=== PATIENT | male | born 1960 | race Hispanic/Latino ===

== ENCOUNTER 2024-01-22 19:19 | Emergency (ER) | payer BC, OTHER ==
[~2024-01-22] VITALS: Ht 170.2 cm; Wt 68.2 kg
[~2024-01-22 19:19] MED LIST: ACETAMINOPHEN500 MG PO; AMOX TR-K CLV1 EAC1 PO; CIPROFLOXACIN500 MG PO; CULTURELLE1 EAC1 PO; CYCLOBENZAPRINE10 MG PO; DOCUSATE SODIU100 MG PO; FLUCONAZOLE200 MG PO; HYDROMORPHONE HC2 MG PO; METOPROLOL SUC100 MG PO; METRONIDAZOLE250 MG PO; ONDANSETRON HCL4 MG PO; OXYCODONE HCL5 MG PO; PANTOPRAZOLE SO40 MG PO; ROSUVASTATIN CA10 MG PO; SUCRALFATE1 GM PO; TADALAFIL20 M1 PO; TAMSULOSIN HCL0.4 MG PO
--- OUTSIDE RECORDS SUMMARY | 2024-01-22 19:23 | XMS ---
PreManage Notification: EKATERINA BLANTON Security Customer Engineer Events No recent Security Events currently on file [facility] There are no care providers on record at this time. Berta has no Care Guidelines for this patient. [place] VISIT COUNT (12 MO.) 2 CHARITO Walters TOTAL 2 NOTE: Visits indicate total known visits. ED/UCC VISIT TRACKING (12 MO.) 01/22/2024 19:19 CHARITO Perez [place] TYPE: Emergency COMPLAINT: - WOUND CHECK 12/20/2023 02:55 CHARITO Perez [place] TYPE: Emergency COMPLAINT: - ABD PAIN INPATIENT VISIT TRACKING (12 MO.) 12/20/2023 06:18 CHARITO Perez [place] TYPE: Medical Surgical COMPLAINT: - ABDOMINAL ABSCESS DIAGNOSES: - Acquired absence of other specified parts of digestive tract - Acquired absence of other specified parts of digestive tract - Anemia, unspecified - Anemia, unspecified - Bacteroides fragilis [B. fragilis] as the cause of diseases classified elsewhere - Bacteroides fragilis [B. fragilis] as the cause of diseases classified elsewhere - Cardiomyopathy, unspecified - Cardiomyopathy, unspecified - Diaphragmatic hernia without obstruction or gangrene - Diaphragmatic hernia without obstruction or gangrene - Esophageal varices without bleeding - Esophageal varices without bleeding - Facial weakness - Facial weakness - Fistula of intestine - Fistula of intestine - Gastritis, unspecified, without bleeding - Gastritis, unspecified, without bleeding - Gastro-esophageal reflux disease without esophagitis - Gastro-esophageal reflux disease without esophagitis - Gastrointestinal hemorrhage, unspecified - Hypokalemia - Hypokalemia - Hypomagnesemia - Hypomagnesemia - Infection following a procedure, organ and space surgical site, initial encounter - Infection following a procedure, organ and space surgical site, initial encounter - Other postprocedural complications and disorders of digestive system - Other postprocedural complications and disorders of digestive system - Other specified abnormal findings of blood chemistry - Other specified abnormal findings of blood chemistry - Other specified bacterial agents as the cause of diseases classified elsewhere - Other specified bacterial agents as the cause of diseases classified elsewhere - Other supraventricular tachycardia - Other supraventricular tachycardia - Perforation of intestine (nontraumatic) - Perforation of intestine (nontraumatic) - Peritoneal abscess - Peritoneal abscess - Peritoneal adhesions (postprocedural) (postinfection) - Peritoneal adhesions (postprocedural) (postinfection) - Sepsis, unspecified organism - Sepsis, unspecified organism - Severe sepsis with septic shock - Severe sepsis with septic shock - Surgical operation with anastomosis, bypass or graft as the cause of abnormal reaction of the patient, or of later complication, without mention of misadventure at the time of the procedure - Surgical operation with anastomosis, bypass or graft as the cause of abnormal reaction of the patient, or of later complication, without mention of misadventure at the time of the procedure - Unspecified abdominal pain - Unspecified right bundle-branch block - Unspecified right bundle-branch block [email or web address]
[2024-01-22 20:04] LABS: BASOPHILS 0.8 % (0-2); EOSINOPHILS 5.9 % (0-6); HEMATOCRIT 30.5 % (35.0-50.0); HEMOGLOBIN 10.3 g/dL (12.0-18.0); LYMPHOCYTES 25.1 % (24-44); MCH 29.3 (27-36); MCHC 33.8 g/dl (30-36); MCV 86.9 fl (81-99); MONOCYTES 7.4 % (0-12); NEUTROPHILS 60.8 % (39-80); PLATELET COUNT 264 K/uL (140-440); RBC 3.51 M/ul (4.3-5.7); RDW 13.9 (10.5-15.0)
[2024-01-22 20:17] LABS: ALBUMIN 2.8 g/dL (3.4-5.0); ALBUMIN/GLOBULIN RATIO 0.7 (1.1-2.4); ANION GAP 11.6 (7-21); BILIRUBIN, TOTAL 0.3 ng/dL (0.2-1.0); BUN/CREATININE RATIO 22.36 (6.0-28.6); CALCIUM 8.3 mg/dL (8.5-10.1); CREATININE, SERUM 0.76 mg/dL (0.70-1.30); POTASSIUM 3.6 mmol/L (3.5-5.1); PROTEIN, TOTAL 6.8 g/dL (6.4-8.2)
[2024-01-22 21:56] VITALS: BP 135/88
== END 2024-01-22 21:56 | disposition home or self-care (01) ==
LOC: ED 19:19
PROVIDERS: Family Medicine
DX: K63.2 Fistula of intestine (principal); Z79.899 Other long term (current) drug therapy
CPT/HCPCS: 36415; 74177; 80053; 85025

== ENCOUNTER 2024-06-07 16:50 | Emergency (ER) | payer BC, OTHER ==
[~2024-06-07] VITALS: Ht 170.2 cm; Wt 74.9 kg
[2024-06-07] MEDS ORDERED: SODIUM CHLORIDE 0.9% 1,000 ML IV ONE (18:00)
[2024-06-07 18:17] LABS: BASOPHILS 0.6 % (0-2); HEMATOCRIT 37.3 % (35.0-50.0); HEMOGLOBIN 12.6 g/dL (12.0-18.0); LYMPHOCYTES 18.7 % (24-44); MCH 28.1 (27-36); MCHC 33.9 g/dl (30-36); MONOCYTES 7.4 % (0-12); NEUTROPHILS 69.3 % (39-80); PLATELET COUNT 250 K/uL (140-440); RBC 4.49 M/ul (4.3-5.7); RDW 17.1 (10.5-15.0)
[2024-06-07 18:29] LABS: ALBUMIN 3.2 g/dL (3.4-5.0); ALBUMIN/GLOBULIN RATIO 0.82 (1.1-2.4); BILIRUBIN, TOTAL 0.2 ng/dL (0.2-1.0); BUN/CREATININE RATIO 12.6 (6.0-28.6); CALCIUM 8.4 mg/dL (8.5-10.1); CREATININE, SERUM 1.19 mg/dL (0.70-1.30); PROTEIN, TOTAL 7.1 g/dL (6.4-8.2)
[2024-06-07 19:31] VITALS: BP 136/87
== END 2024-06-07 19:31 | disposition home or self-care (01) ==
LOC: ED 16:50
PROVIDERS: Emergency Medicine
DX: Z03.89 Encounter for observation for other suspected diseases and conditions ruled out (principal); L98.8 Other specified disorders of the skin and subcutaneous tissue; Z98.890 Other specified postprocedural states
CPT/HCPCS: 36415; 74177; 80053; 83690; 85025; 99284-25; J7030; Q9967

== ENCOUNTER 2024-07-05 13:15 | Inpatient (IN) | payer BC, OTHER ==
[~2024-07-05] VITALS: Ht 157.5 cm; Wt 75.0 kg
[2024-07-08] MEDS ORDERED: FLUTICASONE PRO16 GM NAS (07:30)
[2024-07-08 07:35] VITALS: BP 148/96
[2024-07-09] VITALS (7 sets, daily range): BP systolic 112–145; BP diastolic 73–83
[2024-07-09] MEDS ORDERED: LACTATED RINGER'S 1,000 ML IV SCH ×2 (05:00→13:45)
[2024-07-09] MEDS ORDERED: TYLENOL325 MG PO (06:13)
[2024-07-09] MEDS ORDERED: ADVIL LIQUI-GE200 MG PO (06:13)
[2024-07-09] MEDS ORDERED: HEParin SOD (PORCINE) 5,000 UNIT/0.5 ML SYR SUB-Q SCH (07:00)
[2024-07-09] MEDS ORDERED: metroNIDAZOLE/SODIUM CHLORIDE 500 MG/100 ML PIGGYBACK IV SCH ×2 (07:00→14:00)
[2024-07-09] MEDS ORDERED: LIDOCAINE HCL 1% 5 ML SDV INJ ONE (07:00)
[2024-07-09] MEDS ORDERED: IBLOOD GLUCOSE TEST STRIP 1 EA TEST VI PRN ×2 (07:00→13:30)
[2024-07-09] MEDS ORDERED: CEFAZOLIN SODIUM 2 GM/20 ML SYR IV SCH ×2 (07:00→14:00)
[2024-07-09] MEDS ORDERED: ROCURONIUM BROMIDE 50 MG/5 ML SYR ONE ×2 (09:14→10:26)
[2024-07-09] MEDS ORDERED: ACETAMINOPHEN 1,000 MG/100 ML VIAL ONE (09:14)
[2024-07-09] MEDS ORDERED: dexmedeTOMIDine HCl 200 MCG/2 ML VIAL ONE (09:14)
[2024-07-09] MEDS ORDERED: LIDOCAINE HCL 2% 20 MG/ML VIAL INJ ONE (09:14)
[2024-07-09] MEDS ORDERED: DEXAMETHASONE SOD PHOS 4 MG/ML VIAL ONE ×3 (09:14→12:30)
[2024-07-09] MEDS ORDERED: fentaNYL citrate 100 MCG/2 ML VIAL ONE (09:14)
[2024-07-09] MEDS ORDERED: propofoL 200 MG/20 ML VIAL ONE (09:14)
[2024-07-09] MEDS ORDERED: ondansetron HCL 4 MG/2 ML VIAL ONE (09:14)
[2024-07-09] MEDS ORDERED: LIDOCAINE HCL 2% 5 ML SDV ONE (09:14)
[2024-07-09] MEDS ORDERED: KETAMINE in NS 50 MG/5 ML SYR ONE (09:15)
[2024-07-09] MEDS ORDERED: ePHEDrine sulfate 50 MG/ML AMP ONE (09:42)
[2024-07-09] MEDS ORDERED: LACTATED RINGER'S 1,000 ML IV ONE ×2 (10:47→12:25)
[2024-07-09] MEDS ORDERED: MAGNESIUM SULFATE 1 GM/2 ML VIAL ONE (11:43)
--- NOTE | 2024-07-09 11:45 | NUR ---
Spoke with pts family, he is in surgery. , daughter, and LAINEY present. Family deny needs. Pt has been walking well and does not need any DME. Family drive him. Pt now has OHP and they are ok financially. They do not have food stamps or use a food bank. Pt will go home with family when he is discharge. I will fu with pt later this afternoon or in the am following surgery. Family deny needs.
[2024-07-09] MEDS ORDERED: SODIUM CHLORIDE 0.9% 20 ML IV ONE ×2 (12:30)
[2024-07-09] MEDS ORDERED: Ropivacaine HCl 0.5% 30 ML VIAL ONE ×2 (12:30)
[2024-07-09] MEDS ORDERED: SEVOFLURANE 250 ML BTL INH ONE (13:19)
[2024-07-09] MEDS ORDERED: NALOXONE HCL 0.4 MG SYR IV PRN (13:30)
[2024-07-09] MEDS ORDERED: ondansetron HCL 4 MG/2 ML VIAL IV PRN ×2 (13:30→13:45)
[2024-07-09] MEDS ORDERED: fentaNYL citrate 50 MCG/ML SDV IV PRN (13:30)
[2024-07-09] MEDS ORDERED: PROCHLORPERAZINE EDISYLATE 10 MG/2 ML VIAL IV PRN (13:30)
[2024-07-09] MEDS ORDERED: HYDROmorphone HCL 1 MG/ML SYR IV PRN ×2 (13:30→13:45)
[2024-07-09] MEDS ORDERED: droPERidol 5 MG/2 ML VIAL IV PRN (13:30)
--- NOTE | 2024-07-09 13:35 | NUR ---
07/09/24 6985 Kendra Evans PATIENT BEGINS TO SWALLOW. ORAL AIRWAY IS REMOVED AFTER FOLLOWING MY INSTRUCTIONS TO OPEN HIS MOUTH. PATIENT IS REASSURED. HE RETURNS TO RESTING QUIETLY, WITH HIS EYES CLOSED, WHEN UNSTIMULATED.
[2024-07-09] MEDS ORDERED: FAMOTIDINE 20 MG/ 2 ML VIAL IV SCH (13:39)
[2024-07-09] MEDS ORDERED: TAMSULOSIN HCL 0.4 MG CAP PO SCH (13:44)
[2024-07-09] MEDS ORDERED: LIDOCAINE 2% VISCOUS 6 ML SYR TOP ONE (13:45)
[2024-07-09] MEDS ORDERED: ACETAMINOPHEN 1,000 MG/100 ML VIAL IV PRN (13:45)
[2024-07-09] MEDS ORDERED: KETOROLAC TROMETHAMINE 30 MG/ML VIAL IV PRN (13:45)
[2024-07-09] MEDS ORDERED: IBUPROFEN 600 MG TAB PO PRN (13:45)
[2024-07-09] MEDS ORDERED: ACETAMINOPHEN 500 MG TAB PO PRN (13:45)
[2024-07-09] MEDS ORDERED: HEParin SOD (PORCINE) 5,000 UNIT/ML SDV SUB-Q SCH (14:00)
--- NOTE | 2024-07-09 14:24 | NUR ---
PT ARRIVES MED-SURG ROOM 113 VIA GURNEY, ESCORTED BY SOLO REGALADO. PT IS DROWSY, ROUSES EASILY TO VERBAL STIMULI. PT IS ALERT AND ORIENTED. VSS. CONTINUOUS PULSE OXIMETER IN PLACE, SCDS TO BLE FROM ANKLE TO KNEE. IV IN LEFT WRIST, PATENT, WNL. STOCKTON CATHETER DRAINS CLEAR, LIGHT YELLOW URINE TO GRAVITY. MID-LINE ABDOMINAL INCISION COVERED WITH DRESSING, SMALL AMOUNT OF SWALLOWING NOTED AT THE DISTAL PORTION. RLQ DRESSING IN PLACE OVER PREVIOUS DRAIN SITE. MODERATE AMOUNT OF SHADOWING NOTED. ABDOMEN IS MODERATELY DISTENDED, TENDER TO TOUCH. BOWEL TONES HYPOACTIVE X4 QUADRANTS. LUNGS CLEAR, HRR. VP PATIENT TO BUE AND BLE LESS THAN 3 SEC. PT ORIENTED TO ROOM AND CALL LIGHT. CALL LIGHT IN REACH. VISITORS X3 IN ROOM.
--- NOTE | 2024-07-09 15:27 | NUR ---
NO NEW DRAINAGE NOTED ON ABDOMINAL INCISIONS. ABDOMIN REMAINS MODERATELY DISTENDED. PT ASKS TO PASS BM, PT AMBULATES WITH SBA TO TOILET. PT ATTEMPTS TO PASS BM, NO RESULTS. PT BACK TO BED, TOLERATES ACTIVITY FAIR. REPORTS 7/10 INCISIONAL PAIN, DILAUDID, RECEIVED, SEE EMAR. FLAGYL INFUSION RUNNING, IV SITE WNL. VSS. CALL LIGHT IN REACH.
--- NOTE | 2024-07-09 17:27 | NUR ---
VSS. PT NOW REPORTS PAIN IN ABDOMEN 2/10, TOLERABLE. PT RESTS IN BED. TOLERATES SIPS OF WATER. STOCKTON CATHETER DRAINS CLEAR YELLOW URINE TO GRAVITY. PT AGREEABLE TO JELLO. EDUCATION ON IS PROVIDED, IS IN REACH, ENCOURAGED. ABDOMEN REMAINS MODERATELY DISTENDED AND FIRM, TENDER TO TOUCH. SMALL INCREASE IN SHADOWING TO DISTAL PORTION OF MID-LINE INCISION. RLE DRESSING NOW SATURATED. PT EATS JELLO, CALL LIGHT IN REACH, NO REQUESTS AT THIS TIME.
--- NOTE | 2024-07-09 19:30 | NUR ---
REPORT RECIEVED FROM DAY SHIFT RN. PATIENT RESTING IN BED. DENIES NEEDS AT THIS TIME. CALL LIGHT IN REACH.
--- NOTE | 2024-07-09 20:14 | NUR ---
in room. No cares were requested.
--- NOTE | 2024-07-09 20:26 | NUR ---
PATIENT RESTING IN BED. VS AND I&Os OBTAINED AND RECORDED. STOCKTON CATH CARE PROVIDED PER PROTOCOL. PATIENT REPORTS 2/10 ABD PAIN AT THIS TIME AND STATES HE WILL CALL IF HE NEEDS PAIN MEDICATION. ABD DRESSINGS C/D/I WITH DRAINAGE NOTED. PATIENT HAS NO FURTHER NEEDS. PATIENT EDUCATED TO ROOM AND CALL LIGHT. BED ALARM ON FOR SAFETY. CALL LIGHT IN REACH.
--- NOTE | 2024-07-09 22:10 | NUR ---
SCHEDULED MEDICATION ADMINISTERED. PATIENT DENIES THE NEED FOR PAIN MEDCIATION AT THIS TIME. NO FURTHER NEEDS. CALL LIGHT IN REACH.
[2024-07-10] VITALS (10 sets, daily range): BP systolic 112–161; BP diastolic 71–81
--- NOTE | 2024-07-10 00:51 | NUR ---
PATIENT RESTING IN BED ON BACK WITH EYES CLOSED. RESPIRATIONS EVEN AND UNLABORED. CALL LIGHT IN REACH.
--- NOTE | 2024-07-10 01:00 | NUR ---
CALL LIGHT ANSWERED. PATIENT REQUESTING PAIN MEDICATION. PRN PAIN MEDICATION ADMINISTERED. VS AND I&Os OBTAINED AND RECORDED. NO FURTHER NEEDS AT THIS TIME. CALL LIGHT IN REACH.
--- NOTE | 2024-07-10 03:00 | NUR ---
PATIENT RESTING IN BED WITH EYES CLOSED. RESPIRATIONS EVEN AND UNLABORED. CALL LIGHT IN REACH.
--- NOTE | 2024-07-10 04:36 | NUR ---
PRN PAIN MEDICATION ADMINSITERED PER PATIENT REQUEST. PATIENT REPORTS 03/30 ABD PAIN. ABD DRESSINGS C/D/I WITH DRAINAGE NOTED ON DRESSINGS. PATIENT DENIES FURTHER NEEDS. SCDs IN PLACE. CALL LIGHT IN REACH.
--- NOTE | 2024-07-10 05:24 | NUR ---
PATIENT REPORTS 8/10 ABD PAIN. PATIENT REQUESTING DILAUDID. PRN MEDICATION ADMINSITERED. PATIENT DENIES FURTHER NEEDS. CALL LIGHT IN REACH.
[2024-07-10 05:44] LABS: BASOPHILS 0.6 % (0-2); HEMATOCRIT 34.6 % (35.0-50.0); HEMOGLOBIN 11.6 g/dL (12.0-18.0); LYMPHOCYTES 8.9 % (24-44); MCH 27.7 (27-36); MCHC 33.4 g/dl (30-36); MCV 82.9 fl (81-99); MONOCYTES 6.8 % (0-12); NEUTROPHILS 83.7 % (39-80); PLATELET COUNT 229 K/uL (140-440); RBC 4.17 M/ul (4.3-5.7); RDW 15.6 (10.5-15.0)
[2024-07-10 06:05] LABS: ALBUMIN 2.7 g/dL (3.4-5.0); ALBUMIN/GLOBULIN RATIO 0.84 (1.1-2.4); ANION GAP 11.9 (7-21); BILIRUBIN, TOTAL 0.5 ng/dL (0.2-1.0); BUN/CREATININE RATIO 14.89 (6.0-28.6); CALCIUM 8.3 mg/dL (8.5-10.1); CREATININE, SERUM 0.94 mg/dL (0.70-1.30); POTASSIUM 3.9 mmol/L (3.5-5.1); PROTEIN, TOTAL 5.9 g/dL (6.4-8.2)
--- NOTE | 2024-07-10 06:05 | NUR ---
SCHEDULED MEDICATION ADMINSITERED. PATIENT HAS NO FURTHER NEEDS. CALL LIGHT IN REACH.
--- NOTE | 2024-07-10 07:07 | NUR ---
REPORT RECEIVED FROM SOLO SOTOMAYOR. PT OPENS EYES AND RESPONDS WHEN GREETED. NO NEEDS AT THIS TIME, CALL LIGHT AND PERSONAL BELONGINGS IN REACH.
--- NOTE | 2024-07-10 08:06 | NUR ---
PATIENT RESTING IN BED AT THIS TIME. FINANCE ATTORNEY WENT INTO ROOM FOR HOURLY ROUNDS, RN IN ROOM AT THIS TIME. CALL LIGHT WITHIN REACH, NO FURTHER NEEDS AT THIS TIME.
--- NOTE | 2024-07-10 09:13 | NUR ---
INITIAL ASSESSMENT COMPLETE. PT IV FLUSHES WNL. LUNG SOUNDS CLEAR THROUGHOUT, ON ROOM AIR WITH CPOX AT BEDSIDE, HEART TONES HEARD WNL. BOWEL TONES ACTIVE THROUGHOUT, PT HAS INCISIONAL PAIN WITH PALPATION, OTHERWISE STATES HIS PAIN IS A 2/10 AND HAS NO REQUESTS FOR INTERVENTION AT THIS TIME. MIDLINE DRESSING IS IN PLACE WITH DARK RED SHADOWING NOTED TO BOTTOM 1/3 OF DRESSING, BOTTOM EDGES OF DRESSING ARE CURLING UP A SMALL AMOUNT. DRESSING IN RLQ IS INTACT WITH PINK SHADOWING NOTED THROUGHOUT DRESSING. PT PULSES 2+ IN ALL EXTREMETIES, NO EDEMA, NUMBNESS, OR TINGLING. STOCKTON CARE PROVIDED BY SOLO CASTILLO. STOCKTON TO R THIGH FLOWING FREELY AND HANGING ON R SIDE OF BED, URINE CLEAR AND YELLOW. PT EXPRESSES DISCOMFORT WITH STOCKTON, STATES HE WOULD LIKE IT REMOVED. PTs IS PRESENT ON COUCH THROUGHOUT. NO OTHER NEEDS AT THIS TIME, CALL LIGHT AND PERSONAL BELONGINGS IN REACH.
--- NOTE | 2024-07-10 09:48 | NUR ---
UR CLINICAL REVIEW: [facility] INPT CRITER FOR GENERAL SURGICAL GRG KASSIE GIRALDO PPO INPT 07/09/24 @ 1343 ORDER MATCHES REG RECORDS SENT FOR AUTH REVIEW DISCHARGE TO HOME WHEN STABLE 07/12/24
--- NOTE | 2024-07-10 10:07 | NUR ---
GERBER BURNS PRESENT IN ROOM CHANGING PTs LINEN AND ASSISTING WITH CARES.
--- NOTE | 2024-07-10 10:30 | NUR ---
Spoke with John. He also denies needs. He states he now has OHP, he has applied for food stamps that will start in July, he spoke with JOSE DE JESUS and they completed an evaluation. They helped him with a utility bill. He states they do not run out of food. Money is short as he has not been able to return to work. His daughter moved in with her and his to assist and drive him. Pt plans on dc to home when he is cleared medically.
--- NOTE | 2024-07-10 10:59 | OR ---
[facility] [address], [place] [address] Signed DATE OF OPERATION: 07/09/2024 SURGEON: Hossein Carrasco MD PREOPERATIVE DIAGNOSES: 1. 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 2. History of severe sepsis with intra-abdominal abscess related to defect in small bowel with laparotomy, repair of enterotomy, placement of omental patch December 20, 2023.( Hossein Carrasco MD [facility]) 3. History of robotic cholecystectomy and appendectomy with repair of enterotomy x3 (Dr. Tamia Chen, [facility]) November 2023 4. Subsequent segmental bowel resection (Dr. Gale, ([place], [place] November 2023). POSTOPERATIVE DIAGNOSIS: Persistent enterocutaneous fistula segment of small bowel. PROCEDURES: 1. Laparotomy with extensive lysis of adhesions, prolonged, complicated and difficult. 2. Excision of segment of small bowel with enterocutaneous fistula including end-to-end enteroenterostomy. 3. Excision of fistulous tract (prolonged, complicated, difficult). ANESTHESIA: General endotracheal; Akira Rashid BOOKS BINDER and postoperative bilateral TAP block. INDICATION: This 63-year-old man is a patient of Dr. Symone Jeffers, [place], [place]. The patient lives in [place] and works for [employer] in [place]. In mid November, he underwent robotic cholecystectomy and appendectomy by Dr. Tamia Chen in [place], [place] with three enterotomies requiring repair. He had a prolonged ileus postoperatively ultimately operated on by Dr. Gale in [place], [place] through laparotomy requiring segmental small bowel resection with stapled anastomosis. He was subsequently discharged from the hospital, presented to [facility] emergency room with septic shock markedly hypotensive and tachycardic and found on CT scan to have intra-abdominal abscess and free air. Emergency operation included drainage of abscess and identification of a defect in the small bowel, not far from previous bowel resection. As the abdomen was essentially "frozen" mobilization of bowel loops could not be undertaken. Therefore, primary repair was undertaken as well as an omental patch and placement of a drain. As might be predicted, he did develop a fistula and enteric Electronically Signed By: HOSSEIN CARRASCO MD 07/10/24 1059 PATIENT NAME: EKATERINA BLANTON OPERATIVE REPORT DATE OF : 62 REPORT #: [id number] PHYSICIAN: HOSSEIN CARRASCO MD PCP: SYMONE JEFFERS MD REPORT IS CONFIDENTIAL AND NOT TO BE RELEASED WITHOUT AUTHORIZATION [facility] [address], [place] [address] Signed drainage through that site. Care was maintained to keep the fistula "off the midline" draining through right lateral area through the drain itself. The wound VAC device applied at time of operation did collect a fair amount of bilious fluid initially ultimately that dried up. The patient was ultimately discharged home with a drain in place. He has had subsequent outpatient monitoring and diminished drain output through the Quentin tube. Imaging studies including small bowel follow-through showing no sign of actual fistula. However, the fistulous output, though quite minimal, has always had a tinge of bile within it. The patient is more than six months out since initial operation and although highly functional and having recovered fully from his sepsis and situational malnutrition. 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 On June 10, 2024, he underwent a fistulogram via the drain on the right side which did confirm persistent enterocutaneous fistula. He is now offered operation for definitive resection of the fistulous tract and the fistula segment of bowel. He and his and daughter understand the risk of bleeding, infection, inability to complete the operation and formidable and hostile abdomen is encountered as well as other complications that are unforeseen. Understanding this they wished to proceed. FINDINGS: The abdomen was far more favorable than at his initial laparotomy on December 19 but he did have dense interloop adhesions throughout the abdominal cavity. A fistulous tract extending from the right mid abdomen to the central portion of the abdomen was identified and carefully dissected free extending to a segment of small bowel where a very small fistulous opening was noted. A fibrinopurulent tract was noted corresponding to the drain itself. Resection of the segment of small bowel with the fistula was accomplished and an end to end anastomosis accomplished. Extensive lysis of adhesions was required throughout the course of operation. There were no enterotomies made during the course of dissection. The previous stapled anastomosis performed in [place] appeared to be intact, though the bowel segments were somewhat dilated in this area, but without sign of actual obstruction. Definitive resection of the fistulous tract and the fistulous opening and corresponding segment of small bowel has been accomplished successfully. Of note, there is only scant omentum that Electronically Signed By: HOSSEIN CARRASCO MD 07/10/24 1059 PATIENT NAME: EKATERINA BLANTON OPERATIVE REPORT DATE OF : 62 REPORT #: [id number] PHYSICIAN: HOSSEIN CARRASCO MD PCP: SYMONE JEFFERS MD REPORT IS CONFIDENTIAL AND NOT TO BE RELEASED WITHOUT AUTHORIZATION [address] [place] [address] Signed remains and was not able to cover the abdominal contents from the incision itself. DESCRIPTION OF PROCEDURE: The patient was brought to the operating room and given a general endotracheal anesthetic. Preoperative antibiotics had been administered. A full bowel prep was given preoperatively. Sequential compression device stockings used and heparin subcutaneously administered. The right-sided Quentin drain was draining to a bulb receptacle which had a light green fibrinopurulent appearance. There is no actual egress from the midline incision at this point. The abdomen was clipped and prepared with a chlorhexidine solution. A Whaley catheter was placed as well. Sequential compression device stockings were used also. The previou midline incision extended to below the umbilicus. The central wound scar was quite dense, no doubt related to prolonge wound vac management of enteric drainage previously. An area inferior to the incision in the low mid pelvis was incised and dissection carried through fresh subcutaneous tissue and with meticulous care, ultimately entering the peritoneal cavity. There were interloop adhesions but with meticulous care the plane of the peritoneal cavity could be more fully developed. The incision was extended cephalad as bowel loops that were densely adherent to the undersurface of the abdominal wall were with sharp and blunt dissection freeing the midline fascia cephalad. Extreme care was taken in avoidance of enterotomy. There were NO enterotomies through the course of operation. In the region of the midline at the umbilicus, extremely dense fibrous tissue was noted corresponding to his transabdominal fistulous drainage requiring wound VAC previously was noted. INternally the fistulous tract had a muco purulent exudate which was gram stained and cultured. Protracted and meticulous dissection was continued ultimately freeing bowel loops and identifying the offending segment of bowel and its fistulous connection to the right abominal drain site. Body position of surgeon was changed to the left side where furhter dissection was undertaken freeing the bowel loops and inflammatory process from the abdominal wall using sharp dissection with a 15 blade. Ultimately, the drain was encountered that penetrated into the fistulous tract. The drain was transected at its origin from the abdominal wall and later removed. Interloop adhesions of normal appearing bowel loops were freed up using sharp dissection to the offending segment of small bowel concordant to the bowel segment likely having the fistulous defect. The fibrous tract of the quentin drain wa dissected to a single loop of bowel. I t was densely adherent and within this area one could see the fistulous opening. Electronically Signed By: HOSSEIN CARRASCO MD 07/10/24 1059 PATIENT NAME: EKATERINA BLANTON OPERATIVE REPORT DATE OF : 62 REPORT #: [id number] PHYSICIAN: HOSSEIN CARRASCO MD PCP: SYMONE JEFFERS MD REPORT IS CONFIDENTIAL AND NOT TO BE RELEASED WITHOUT AUTHORIZATION [address] [address] Signed Segmental bowel resection was deemed most appropriate for definitive treatment of the problem. The bowel loop was isolated with laparotomy packs and the mesentery to it was incised and secured with hemostats and vascular pedicles secured with 0 silk ties. Two Mack clamps were applied to the small bowel segment and the segment of small bowel and dense fistulous tract sent for permanent pathology. The Gram stain of the fistulous tract, which was earlier obtained during the course of the operation whoed white cells, but no significant bacteria count. The anastomosis was formed in a end-to-end configuration using a two layer technique of interrupted 3-0 silk in the serosal layer and interrupted 3-0 Vicryl in the mucosal layer. The minimal mesenteric defect was secured with interrupted 3-0 silk. Two large clips were applied to the anastomotic margins for future reference should the need arise. The anastomosis appeared widely patent and when milking the segments proximally and distally, there was no sign of leakage. Good viability of both proximal and distal segments was noted. The segments were freed more fully from surrounding bowel loops. The area of previous anastomosis performed elsewhere, which appeared to be a staple anastomosis was widely patent; though somewhat bulbous in its configuration, it was certainly not obstructed in any way. The intra-abdominal cavity was copiously irrigated with saline solution. Tisseel fibrin glue was applied to the anastomosis and with an aerosolizer to provide support to the anastomosis. The drain emanating from the right abdominal wall was fully removed. The defect of the fascial wall internally was reapproximated with #1 PDS suture, though the defect was small enough it would be unlikely to cause hernia or other problem. Only minimal residual omentum remained to lay over the intra abdominal contents. The abdomen was copiously irrigated and the midline fascia was reapproximated with running bidirectional #1 PDS suture. The fistulous tract from the right side of the abdomen was excised with electrocautery, cauterized and later packed with plain gauze. Irrigation was undertaken of the subcutaneous space. The skin was closed with interrupted clips rather than the usual closure with Vicryl so as to allow egress of fluid if necessary. An Acticoat dressing was applied to the midline, plain gauze to the right abdominal site. The patient was ultimately extubated after undergoing TAP blocks bilaterally and taken to Electronically Signed By: HOSSEIN CARRASCO MD 07/10/24 1059 PATIENT NAME: EKATERINA BLANTON OPERATIVE REPORT DATE OF : 62 REPORT #: [id number] PHYSICIAN: HOSSEIN CARRASCO MD PCP: SYMONE JEFFERS MD REPORT IS CONFIDENTIAL AND NOT TO BE RELEASED WITHOUT AUTHORIZATION [facility] [address] [facility] [place], [place] [address] Signed recovery room in good condition. Blood loss was 25 mL. The operation was prolonged, complicated, and difficult but accomplished safely and with a high expectation of success. MD JOAN Bates/MONICA /[id number] cc: Dr. Tamia Jeffers Copies: ~ Electronically Signed By: HOSSEIN CARRASCO MD 07/10/24 1059 PATIENT NAME: EKATERINA BLANTON OPERATIVE REPORT DATE OF : 62 REPORT #: [id number] PHYSICIAN: HOSSEIN CARRASCO MD PCP: SYMONE JEFFERS MD REPORT IS CONFIDENTIAL AND NOT TO BE RELEASED WITHOUT AUTHORIZATION
--- NOTE | 2024-07-10 11:10 | NUR ---
PT NOT AVAILABLE FOR VISIT. PROVIDED PRAYER.
--- NOTE | 2024-07-10 11:34 | NUR ---
PATIENT IN BED AT THIS TIME. TOP EXECUTIVE ASSISTE PATIENT TO BATHROOM AND THEN BACK TO THE CHAIR. TOP EXECUTIVE PROVIDED FRESH LINENS FOR PATIENT. CALL LIGHT WITHIN REACH, NO FURTHER NEEDS AT THIS TIME.
--- NOTE | 2024-07-10 11:49 | NUR ---
PT UP TO AMBULATE IN SUE WITH FWW. PT WALKS FULL LAP. PT CONTINUES REPORTING PAIN. PT BACK TO BED WITH HOT PACKS AND WARM BLANKET AT THIS TIME. PRESENT ON COUCH IN ROOM. NO OTHER NEEDS AT THIS TIME, CALL LIGHT AND PERSONAL BELONGINGS IN REACH.
--- NOTE | 2024-07-10 12:23 | NUR ---
PATIENT IS LYING IN BED WITH HOB ELEVATED WITH HIS LUNCH TRAY SET UP IN FRONT OF HIME. PATIENT IS STANDING AT THE BEDSIDE. PATIENT AND FAMILY STATED NO FURTHER NEEDS AT THIS TIME. CALL LIGHT AND PERSONAL BELONGINGS ARE WITHIN REACH.
--- NOTE | 2024-07-10 13:38 | NUR ---
GERBER BURNS PRESENT PROVIDING PT CARES.
--- NOTE | 2024-07-10 14:20 | NUR ---
PT REQUESTING FRESH HOT PACKS AND WARM BLANKET, SUPPLIED. PT HAS MULTIPLE FAMILY MEMBERS PRESENT IN ROOM. NO OTHER NEEDS AT THIS TIME, CALL LIGHT IN REACH.
--- NOTE | 2024-07-10 14:54 | NUR ---
PATIENT IN BED AT THIS TIME. AIRPLANE MECHANIC APPRENTICE CHARTED VITALS AND I&O'S. CALL LIGHT WITHIN REACH, NO FURTHER NEEDS AT THIS TIME. CALL LIGHT WITHIN REACH, NO FURTHER NEEDS AT THIS TIME.
--- NOTE | 2024-07-10 15:46 | NUR ---
SECOND ASSESSMENT COMPLETE. PT RESTING IN BED, RESPONDS AND ANSWERS QUESTIONS. PT REPORTS ABDOMINAL PAIN IS "BETTER", RATES IT A 4/10. PRN PAIN MEDICATION ADMINISTERED PER ORDERS. IV FLUSHES WNL, IV INFUSING ORDERED. PT ABDOMEN HAS MILD DISTENTION, TENDER TO PALPATION. PT REPORTS NO NAUSEA, REPORTING HE HAS HAD TWO LOOSE BOWEL MOVEMENTS. DRESSINGS ARE UNCHANGED FROM THIS MORNING. NO OTHER NEEDS AT THIS TIME, CALL LIGHT AND PERSONAL BELONGINGS IN REACH.
--- NOTE | 2024-07-10 17:00 | NUR ---
PT AMBULATES ONE LAP IN HALLWAY. ASSISTED BACK TO BED, REPORTING HIS PAIN IS A 7/10. PRN PAIN MEDICATION ADMINISTERED PER OCT, HOT PACKS PROVIDED. DINNER TRAY ARRIVES AND PT POSITIONED TO DRINK DINNER. MULTIPLE FAMILY MEMBERS PRESENT IN ROOM. NO OTHER NEEDS AT THIS TIME, CALL LIGHT AND PERSONAL BELONGINGS IN REACH.
--- NOTE | 2024-07-10 18:23 | NUR ---
DINNER TRAY REMOVED. PT HAS NO NEEDS AT THIS TIME, CALL LIGHT AND PERSONAL BELONGINGS IN REACH.
--- NOTE | 2024-07-10 19:19 | NUR ---
REORT RECIEVED FROM DAY SHIFT RN. PATIENT RESTING IN BED. DENIES NEEDS AT THIS TIME. CALL LIGHT IN REACH.
--- NOTE | 2024-07-10 20:43 | NUR ---
PATIENT RESTING IN BED. VS AND I&Os OBTAINED AND RECORDED. SCHEDULED MEDICATION ADMINISTERED. PATIENT REPORTS 5/10 ABD PAIN. PRN PAIN MEDICATION ADMINISTERED, SEE EMAR. STOCKTON CATH CARE PROVIDED PER PROTOCOL. ABD DRESSINGS C/D/I WITH MINIMAL DRAINAGE. PACKING COVERED BY DRESSING. PATIENT HAS NO FURTHER NEEDS. CALL LIGHT IN REACH.
[2024-07-10] MEDS ORDERED: FAMOTIDINE 20 MG TAB PO SCH (21:00)
--- NOTE | 2024-07-10 23:03 | NUR ---
SCHEDULED MEDICATION ADMINISTERED. PATIENT REPORTS 6/10 ABD PAIN. THIS RN OFFERED TYLENOL. PATIENT STATES "THAT DOES NOT WORK. THE ONE THAT WORKS IS THE ONE IN THE IV". EDUCATION PROVIDED. PRN IV PAIN MEDICATION ADMINISTERED PER PATIENT REQUEST. PATIENT HAS NO FURTHER NEEDS. CALL LIGHT IN REACH.
[2024-07-11] VITALS (10 sets, daily range): BP systolic 120–169; BP diastolic 57–84
--- NOTE | 2024-07-11 00:51 | NUR ---
PATIENT RESTING IN BED ON BACK WITH EYES CLOSED. RESPIRATIONS EVEN AND UNLABORED. CALL LIGHT IN REACH.
--- NOTE | 2024-07-11 03:13 | NUR ---
NEW BAG IV FLUID INFUSING PER ORDER. NO FURTHER NEEDS. CALL LIGHT IN REACH.
--- NOTE | 2024-07-11 05:40 | NUR ---
LEAD ENTERPRISE ARCHITECT OBTAINED VITALS AND I&O. STOCKTON CATH EMPTIED. PT STATES NO FURTHER NEEDS AT THIS TIME. CALL LIGHT WITHIN REACH AND RN IN ROOM.
--- NOTE | 2024-07-11 06:06 | NUR ---
PATIENT REPORTS 8/10 ABD PAIN. PRN PAIN MEDICATION ADMINISTERED PER PATIENT REQUEST. PATIENT ABD DRESSINGS HAVE SOME SEROSANGUINEOUS DRAINAGE NOTED. NEW GOWN PLACED. NO FURTHER NEEDS. CALL LIGHT IN REACH.
--- NOTE | 2024-07-11 06:12 | NUR ---
MD CALLED REGARDING PATIENTS DRESSING DRAINAGE. NEW ORDERS RECIEVED. VERIFIED USING REPEAT BACK METHOD.
--- NOTE | 2024-07-11 06:23 | NUR ---
ABD DRESSINGS AND PACKING REMOVED PER MDs ORDER. PATIENT JOELLE WELL. NO FURTHER NEEDS. CALL LIGHT IN REACH.
--- NOTE | 2024-07-11 07:03 | NUR ---
REPORT RECEIVED FROM RETAIL VISUAL MERCHANDISER RN BRAN. PATIENT IS LYING IN BED WITH HOB ELEVATED. PATIENT ROOM LIGHTS ARE OFF. PATIENT GIVEN A FRESH CUP OF ICE WATER AT THIS TIME. PATIENT STATED NO FURTHER NEEDS, CALL LIGHT AND PERSONAL BELONGINGS ARE WITHIN REACH.
--- NOTE | 2024-07-11 07:41 | NUR ---
0900 MEDICATIONS ADMINISTERED PER THE EMAR. ABDOMEN SURGICAL WOUNDS AND DRESSINGS ASSESSED AT THIS TIME. RIGHT LOWER QUADRANT IS OPEN TO AIR. ABD PAD WITH SMALL AMOUNT OF TAPE OVER THE MIDLINE ABDOMEN INCISION. DRESSING IS CLEAN, DRY, AND INTACT. PATIENT STATED NO FURTHER NEEDS AT THIS TIME. CALL LIGHT AND PERSONAL BELONGINGS IN REACH.
--- NOTE | 2024-07-11 08:31 | NUR ---
PATIENT IS LYING IN BED WITH HOB ELEVATED AND WORKING ON HIS BREAKFAST TRAY. CALL LIGHT AND PERSONAL BELONGINGS ARE WITHIN REACH.
--- NOTE | 2024-07-11 08:42 | NUR ---
Patient was awake with pharmacist in the room. They requested coffee. SOLO Fields was asked (patient is on clear liquid diet) and they were able to be given black coffee. No other cares were requested.
[2024-07-11] MEDS ORDERED: FLUTICASONE PRO16 GM NAS (08:56)
[2024-07-11] MEDS ORDERED: ROSUVASTATIN CA10 MG PO (08:57)
--- NOTE | 2024-07-11 08:57 | NUR ---
MED REC COMPLETE
--- NOTE | 2024-07-11 09:33 | NUR ---
FULL ASSESSMENT COMPLETE AND DOCUMENTED IN THE CHART. PATIENT IS ALERT AND ORIENTED TIMES FOUR. PATIENT IS ON ROOM AIR AND LUNG SOUNDS ARE CLEAR BILATERALLY. CARDIAC WITH NORMAL S1 AND S2 ON AUSCULTATION. RADIAL AND PEDAL PULSES ARE STRONG BILATERALLY. SENSATION INTACT WITH NO COMPLAINTS OF NUMBNESS AND TINGLING. PATIENT IS ON A CLEAR LIQUID DIET AND HIS LAST BM WAS 07/10/24. BOWEL TONES ARE ACTIVE IN ALL FOUR QUADRANTS. PATIENT WITH NO COMPLAINTS OF NAUSEA OR VOMITING. ABDOMEN WITH MILD DISTENTION NOTED AND IS TENDER TO PALPATION. IV FLUSHED WITH 10 ML NORMAL SALINE AND THE DRESSING IS CLEAN, DRY, AND INTACT. LR IS INFUSING AT 85 ML/HR. PATIENT DOES NOT HAVE SCD'S ON AT THIS TIME. ABDOMEN WITH ABD AND TAPE OVER THE MIDLINE ABDOMEN PLACED BY HEAD BANDER AND LINER OPERATOR RN. RLQ PACKING REMOVED AND IS OPEN TO AIR BY HEAD BANDER AND LINER OPERATOR RN PER MD ORDER. PATIENT RATED PAIN 4/10 IN THE ABDOMEN BUT IS NOT REQUESTING ANYTHING FOR PAIN AT THIS TIME. STOCKTON CARE COMPLETE. PATIENT EXPRESSED DISCOMFORT WITH THE CATHETER. PATIENT STATED NO FURTHER NEEDS AT THIS TIME. CALL LIGHT AND PERSONAL BELONGINGS ARE WITHIN REACH.
--- NOTE | 2024-07-11 10:58 | NUR ---
PATIENT IN BED AT THIS TIME. FRY COOK CHARTED VITALS AND I&O'S. CALL LIGHT WITHIN REACH, NO FURTHER NEEDS AT THIS TIME.
--- NOTE | 2024-07-11 11:40 | NUR ---
Patient got up and showered. Bed linenes were changed. Their belly dressing came off in the shower, SOLO Fields notified.
--- NOTE | 2024-07-11 12:30 | NUR ---
No needs from CM.
--- NOTE | 2024-07-11 12:40 | NUR ---
PATIENT IS SITTING UPRIGHT IN BED AND EATING LUNCH AT THIS TIME. PATIENT IS SITTING IN THE CHAIR AT BEDSIDE. PATIENT STATED NO FURTHER NEEDS, CALL LIGHT AND PERSONAL BELONGINGS ARE WITHIN REACH.
--- NOTE | 2024-07-11 14:49 | NUR ---
PATIENT IS LYING IN BED WITH EYES CLOSED AND RESPIRATIONS ARE EVEN AND UNLABORED. PATIENT IS SITTING IN THE CHAIR AT BEDSIDE. CALL LIGHT AND PERSONAL BELONGINGS ARE WITHIN REACH.
--- NOTE | 2024-07-11 15:10 | NUR ---
PATIENT AMBULATED A FULL LAP ON THE MEDICAL SURGICAL FLOOR WITH THIS RN. PATIENT TOLERATED WELL AND HAS NO COMPLAINTS OF PAIN AT THIS TIME. PATIENT IS BACK IN HIS ROOM AND HIS IS ASSISTING HIM TO THE BATHROOM. RN STATED FOR PATIENT TO CALL WHEN BACK IN BED. PATIENT EXPRESSED UNDERSTANDING. PATIENT STATED NO FURTHER NEEDS AT THIS TIME. CALL LIGHT AND PERSONAL BELONGINGS ARE WITHIN REACH.
--- NOTE | 2024-07-11 15:31 | NUR ---
Patient asked to walk [facility]. SOLO Fields walked with them.
--- NOTE | 2024-07-11 15:49 | NUR ---
PATIENT IS LYING IN BED WITH HOB ELEVATED. NEW BAG OF LR STARTED AT THIS TIME. PATIENT RATED ABDOMINAL PAIN AT 3/10 IN THE ABDOMEN. PATIENT IS NOT REQUESTING ANYTHING FOR PAIN AT THIS TIME. MIDLINE ABDOMEN INCISION AND RLQ WOUND IS OPEN TO AIR. SANGUINOUS DRAINAGE NOTED FROM THE MIDLINE INCISION. ABDOMEN WITH MILD DISTENTION NOTED AND TENDER TO PALPATION. PATIENT IS ON A FULL LIQUID DIET AND TOLERATING WELL. BOWEL TONES ARE ACTIVE IN ALL FOUR QUADRANTS. PATIENT STATED NO FURTHER NEEDS AT THIS TIME. CALL LIGHT AND PERSONAL BELONGINGS ARE WITHIN REACH.
--- NOTE | 2024-07-11 16:06 | NUR ---
PATIENT IS IN THE RESTROOM AT THIS TIME. PATIENT IS SITTING ON THE COUCH AT THIS TIME. PATIENT CALL LIGHT IS IN REACH.
--- NOTE | 2024-07-11 16:37 | NUR ---
PATIENT AMBULATED A FULL LAP IN THE HALLWAY WITH RN. PATIENT TOLERATED WELL. PATIENT IS BACK TO HIS ROOM. PATIENT IS IN THE ROOM. PATIENT RATED PAIN A 5/10 IN THE ABDOMEN BUT IS NOT REQUESTING ANYTHING FOR PAIN AT THIS TIME. PATIENT GIVEN A WARM BLANKET AND THE ROOM TEMPERATURE INCREASED TO 74 F PER PATIENT REQUEST. PATIENT STATED NO FURTHER NEEDS AT THIS TIME. CALL LIGHT AND PERSONAL BELONGINGS ARE WITHIN REACH.
--- NOTE | 2024-07-11 17:08 | NUR ---
PATIENT IS SITTING UPRIGHT IN BED AND WATCHING TV. PATIENT IS IN THE ROOM. CALL LIGHT AND PERSONAL BELONGINGS ARE WITHIN REACH.
--- NOTE | 2024-07-11 17:15 | PATH ---
[facility] [address] [place], [place] [address] Signed SPECIMEN(S): A SEGMENT OF SMALL BOWEL WITH FISTULA SPECIMEN SOURCE: A. SEGMENT OF SMALL BOWEL WITH FISTULA CLINICAL HISTORY: Enterocutaneous fistula FINAL PATHOLOGIC DIAGNOSIS: Segment of small bowel with fistula: - Segment of previously opened benign small bowel with serosal adhesions. - See comment. COMMENT: The segment of bowel shows acute serosal and bowel wall inflammation (serositis) focally approaching abscess. Additionally, there is focal foreign material consistent with suture. Dense serosal adhesions are present and in conjunction with other features are certainly consistent with the history of fistula, however, an unequivocal fistula tract is not identified on these sections. Clinical correlation requested. JVR:cml MICROSCOPIC EXAMINATION: Histologic sections of all submitted blocks are examined by light microscopy. These findings, together with the gross examination, support the pathologic diagnosis. GROSS DESCRIPTION: The specimen, labeled and designated "Mando Payne, per requisition segment of small bowel with fistula," is received in formalin and consists of 4 x 2.2 x 1.8 cm unoriented segment of bowel with moderate amount of attached yellow lobulated adipose tissue. The serosal surface is lopez-pink with diffuse adhesions present. The specimen is already opened revealing a lopez-pink mucosa with intact mucosal folds. There are no discrete masses or lesions present. No fistula track is identified though it may have been lost due to the specimen previously being open. Construction Materials Tester sections are submitted as follows: Cassette Summary: (A1) suspected fistula PATIENT NAME: EKATERINA PAYNE PATHOLOGY DATE OF : 62 REPORT #: [id number] PHYSICIAN: [facility] PCP: SYMONE JOSEPH MD REPORT IS CONFIDENTIAL AND NOT TO BE RELEASED WITHOUT AUTHORIZATION [facility] [address], [place] [address] Signed (A2) unoriented margin #1 (A3) unoriented margin #2 AA (under the direct supervision of a pathologist) The Gross Description was prepared using a voice recognition system. The report was reviewed for accuracy; however, sound-alike word errors, addition and/or deletions may occur. If there is any question about this report, please contact Client Services. PERFORMING LABORATORY: Technical component was performed by [facility], [address] [place] [address] (CLIA# [id number]). Professional interpretation was performed by [facility], [address] [place] [id number] (CLIA#: [id number]). Diagnostician: Erick Canales MD Pathologist Electronically Signed 07/11/2024 Copies: ~ PATIENT NAME: EKATERINA PAYNE PATHOLOGY DATE OF : 62 REPORT #: [id number] PHYSICIAN: [facility] PCP: SYMONE JOSEPH MD REPORT IS CONFIDENTIAL AND NOT TO BE RELEASED WITHOUT AUTHORIZATION
--- NOTE | 2024-07-11 17:31 | NUR ---
Walked [facility] with SOLO Fields.
--- NOTE | 2024-07-11 18:44 | NUR ---
Patient reported severe abdominal pain. SOLO Fields was notified.
--- NOTE | 2024-07-11 19:28 | NUR ---
REPORT RECIEVED FROM DAY SHIFT RN. PATIENT RESTING IN BED. DENIES NEEDS AT THIS TIME. CALL LIGHT IN REACH.
--- NOTE | 2024-07-11 20:42 | NUR ---
PATIENT RESTING IN BED. VS AND I&Os OBTAINED AND RECORDED. PATIENT REPORTS 2/10 ABD PAIN AND STATES ITS "ALMOST NOTHING". STOCKTON CATH CARE PROVIDED PER PROTOCOL. ABD INCISIONS HAVE NO DRAINAGE NOTED AT THIS TIME. PATIENT DENIES FURTHER NEEDS. CALL LIGHT IN REACH.
--- NOTE | 2024-07-11 22:46 | NUR ---
PATIENT RESTING IN BED. DENIES NEEDS AT THIS TIME. CALL LIGHT IN REACH.
[2024-07-12] VITALS (8 sets, daily range): BP systolic 131–173; BP diastolic 83–94
--- NOTE | 2024-07-12 00:11 | NUR ---
CALL LIGHT ANSWERED. PATIENT REPORTS 7/10 ABD PAIN AND REQUESTING IV PAIN MEDICATION. PRN PAIN MEDICATION ADMINISTERED PER PATIENT REQUEST. FRESH ICE WATER PROVIDED. PATIENT DENIES FURTHER NEEDS. CALL LIGHT IN REACH.
--- NOTE | 2024-07-12 02:12 | NUR ---
PATIENT RESTING IN BED ON BACK WITH EYES CLOSED. RESPIRATIONS EVEN AND UNLABORED. CALL LIGHT IN REACH.
--- NOTE | 2024-07-12 02:34 | NUR ---
NEW BAG IV FLUID INFUSING PER ORDER. PATIENT DENIES FURTHER NEEDS. CALL LIGHT IN REACH.
--- NOTE | 2024-07-12 05:17 | NUR ---
PATIENT RESTING IN BED. VS AND I&Os OBTAINED AND RECORDED. ASSESSMENT COMPLETE. PATIENT HAS NO COMPLAINTS OF PAIN AT THIS TIME. CALL LIGHT IN REACH.
--- NOTE | 2024-07-12 08:14 | NUR ---
PATIENT IN BED AT THIS TIME. BANKRUPTCY JUDGE WENT INTO PATIENTS ROOM FOR HOURLY ROUNDS. CALL LIGHT WITHIN REACH, NO FURTHER NEEDS AT THIS TIME.
--- NOTE | 2024-07-12 08:28 | NUR ---
UR CONCURRENT CLINICAL REVIEW: [facility] INPT CRITERIA FOR GENERAL SURGICAL GRG, VARIANCE ENTERED FOR [facility] 07/09/24 @ 1343 ORDER MATCHES REG RECORDS SENT FOR AUTH REVIEW DISCHARGE TO HOME WHEN STABLE 07/15/24
--- NOTE | 2024-07-12 08:31 | NUR ---
Patient awake in bed, alert and oriented x4. Patient reports he slept well last night. IV patent, fluids infusing per order. Patient has a large well approxmiated midline healing incision open to room air, rob intact, scant serosang drainage. Small hole in RLQ that is open to room air, no notable drainage. Breakfast to patient at this time. at bedside.
--- NOTE | 2024-07-12 09:42 | NUR ---
PATIENT IN BED AT THIS TIME. DOPE AND FABRIC WORKER CHARTED VITALS AND I&O'S. CALL LIGHT WITHIN REACH, NO FURTHER NEEDS AT THIS TIME.
--- NOTE | 2024-07-12 11:03 | NUR ---
VISITED DURING SPIRITUAL CARE ROUNDS. PT REQUESTED P 3 ARMAMENT/ORDNANCE IMA TECHNICIAN VISIT. NO OTHER IMMEDIATE NEEDS. BREWERY CELLAR WORKER PROVIDED SUPPORTIVE PRESENCE, HOSPITALITY, PRAYER. PT EXPRESSED GRATITUDE.
--- NOTE | 2024-07-12 11:21 | NUR ---
Patient in bed at this time. KITCHEN LEAD went into patients room for hourly rounds. Call light within reach, no further needs at this time.
--- NOTE | 2024-07-12 11:49 | NUR ---
Patient ambulated in hallway, x2 laps, tolerated well.
--- NOTE | 2024-07-12 12:20 | NUR ---
stacey FROM Dr. James to remove orellana catheter.
--- NOTE | 2024-07-12 12:50 | NUR ---
Whaley cath removed at this time. Patient tolerated well, cath tip intact. Patient due to void.
--- NOTE | 2024-07-12 15:17 | NUR ---
pt status changed to comfort care, pt up to bsc loose bm, no void - iv sl, all monitors removed. report to virginia singh rn who helps assist pt back to bed. all belongings to room with pt. pastoral care lencho was called for family and he was here on floor. pt in no distress to room 119 via bed.
--- NOTE | 2024-07-12 15:34 | NUR ---
Patient sitting up in bed on his phone, no distress. IV fluids infusing per order. Patient declined needs, personal supplies and call light within reach.
--- NOTE | 2024-07-12 15:52 | NUR ---
PATIENT AMBULATED IN HALLWAY, TOLERATED WELL. ADMIN DILAUDID 0.5MG IV AND IBUPROFEN 600MG PO.
--- NOTE | 2024-07-12 16:05 | NUR ---
PATIENT AND I WALKED ONE LAP AROUND MED SURG. PUT A NEW GOWN ON AND CHANGED HIS DRAW SHEET AND PUT A ALVARO ON HIS BED.
--- NOTE | 2024-07-12 19:24 | NUR ---
RECEIVED REPORT FROM SOLO HERRERA. PT RESTING IN BED COMFORTABLY. DENIES NEEDS AT THIS TIME. CALL LIGHT WITHIN REACH.
--- NOTE | 2024-07-12 20:30 | NUR ---
PT RESTING COMFORTABLY IN BED. VSS. REPORTS ABD PAIN / TO MIDLINE INC. PT REPORTS PRN TYLENOL AND MOTRIN AREN'T HELPING MUCH AND REQUESTS PRN IV DILAUDID FOR HS. A&Ox4. IND W/ AMBULATION. URINAL PLACED AT BEDSIDE FOR NOC. LSC DIM TO BASES, PT REPORTS INCREASED ABD PAIN W/ DB & C. ENC ABD SPLINTING FOR PAIN. HRR. BTA. REPORTS PASSING FLATUS AND BM TODAY. ABD DISTENDED, FIRM, TENDER TO PALPATION. DENIES NAUSEA. TOLERATING FULL LIQ DIET. VOIDS WNL. LH IV INFUSING LR @ 85MLS/HR. PT REPORTS MIDLINE ABD INC DRSG DAMP UNDERNEATH. INC W/ JASON CLEANSED W/ SOAP AND WATER, NON-ADHERENT PADS AND TAPE APPLIED. MIN SEROSANG DRNG TO DRSG. RLQ "HOLE" CLEANSED AND GUAZE DRSG APPLIED. CALL LIGHT WITHIN REACH. DENIES ANY FURTHER NEEDS.
--- NOTE | 2024-07-12 22:44 | NUR ---
PT RESTING IN BED, WATCHING TV. REPORTS PAIN DOWN TO 5/10 AFTER IV DILAUDID AND PO TYLENOL. NO FURTHER NEEDS. CALL LIGHT WITHIN REACH.
--- NOTE | 2024-07-13 00:12 | NUR ---
PT AWAKE, REPORTS SLEEPING BETWEEN CARES. NEW BAG LR HUNG. LH IV WNL. CALL LIGHT WITHIN REACH.
--- NOTE | 2024-07-13 03:31 | NUR ---
PT APPEARS ASLEEP, BREATHING EVEN AND UNLABORED. IVF INFUSING. CALL LIGHT WITHIN REACH.
--- NOTE | 2024-07-13 05:42 | NUR ---
PT REPORTS INCREASED MIDLINE ABD INC PAIN-REQUESTING PRN IV DILAUDID, DECLINED PO PRN PAIN MED. MIDLINE ABD INC W/ SOME SEROSANG DRNG. ABD MILDLY DISTENDED, TENDER. REPORTS UP TO BR AND PASSING FLATUS. LH IV INFUSING IVF PER EMAR.
[2024-07-13 05:43] VITALS: BP 149/84
--- NOTE | 2024-07-13 05:45 | NUR ---
SOLIDS CONTROL TECHNICIAN OBTAINED VITALS. NO NEW I&O AT THIS TIME. PT ICE WATER REFILLED. PT STATES NO FURTHER NEEDS AT THIS TIME. CALL LIGHT WITHIN REACH.
[2024-07-13 05:47] VITALS: BP 149/84
--- NOTE | 2024-07-13 08:19 | NUR ---
Board has been updated and patient is now in recliner chair for breakfeast. Call light has been placed within reach
[2024-07-13] MEDS ORDERED: TAMSULOSIN HCL0.4 MG PO (08:52)
[2024-07-13] MEDS ORDERED: IBUPROFEN600 MG PO (08:53)
[2024-07-13] MEDS ORDERED: FAMOTIDINE20 MG PO (08:53)
[2024-07-13] MEDS ORDERED: ACETAMINOPHEN500 MG PO (08:53)
[2024-07-13] MEDS ORDERED: DILAUDID2 MG PO (08:54)
[2024-07-13 09:14] VITALS: BP 174/94
--- NOTE | 2024-07-13 09:24 | NUR ---
Patient up to restroom. Patient repoorts 7/10 incisional pain. Admin ibuprofen 600mg, tylenol 1000mg po and dilaudid 1mg IV at this time. Patient encouraged to walk after pain medication starts working, pt receptive. No further needs at this time, call light within reach.
--- NOTE | 2024-07-15 18:35 | DS ---
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 HISTORY: This 63-year-old man is a patient of Dr. Symone Jeffers of [place], [place]. The patient lives in [place] and works for [employer] in [place]. In mid November, he underwent robotic cholecystectomy and appendectomy by Dr. Tamia Chen in [place], [place] with three enterotomies requiring repair. He had a prolonged ileus postoperatively and ultimately operated on by Dr. Gale in [facility] through a midline laparotomy and found to have a defect in the small bowel. He underwent segmental small bowel resection with stapled anastomosis. He had a prolonged recovery at that point, though ultimately tolerated regular liquid diet and was discharged from the hospital. He presented to [facility] Emergency Room in septic shock, markedly hypotensive and tachycardic on December 20, 2023, and found to have on CT scan intraabdominal abscess and free air. I have performed emergency laparotomy, which included drainage of abscess, identification of a defect in the small bowel, not far from the previous bowel resection. The abdomen was essentially "frozen" and mobilization of small bowel loops could not be undertaken by any means. On that basis, primary repair of the defect was undertaken as well as an omental patch and placement of a drain. Predictably, he did develop a fistula with enteric drainage through that site. Care was maintained to keep the fistula "off the midline" draining through the right lateral drain itself. A wound VAC device had been applied over the fascia at the time of the operation and in the early postoperative period did collect a fair amount of bilious fluid initially which ultimately resolved. The patient was ultimately discharged home with a drain in place with a controlled enterocutaneous fistula. He has had multiple outpatient visits and evaluations showing diminishing output from the fistulous tract. Several studies including a small bowel follow-through showed no sign of fistula itself. However, recent findings have shown persistent mucoid purulent type drainage from the Quentin drain and although quite minimal, always had a tinge of bile within it. He underwent a fistulogram through the tube in May, which confirmed a persistent fistula. The patient has been fully resuscitated nutritionally and otherwise and since he is more than six months out from initial operation, I have offered exploration and definitive treatment of the enterocutaneous fistula. Of special note, he is forbidden by his employer to return to work as he is in a food environment at [employer]. He is Electronically Signed By: HOSSEIN CARRASCO MD 07/15/24 1835 PATIENT NAME: EKATERINA BLANTON DISCHARGE SUMMARY DATE OF : 62 REPORT #: [id number] PHYSICIAN: HOSSEIN CARRASCO MD PCP: SYMONE JEFFERS MD REPORT IS CONFIDENTIAL AND NOT TO BE RELEASED WITHOUT AUTHORIZATION [address] [address] Signed admitted at this time to undergo definitive repair of the enterocutaneous fistula. PERTINENT PHYSICAL EXAMINATION: GENERAL: Showed a pleasant man who showed no evidence of systemic toxicity or infection. CHEST: Clear. HEART: Regular without murmur. ABDOMEN: Soft and midline incision is well healed. There is slight inflammatory change in the midportion of the incision. The incision is rather dense given its prolonged and protracted healing related to a wound VAC device. From the right mid abdomen he has a Quentin drain which is well secured showing mucopurulent material within the bulb itself, slightly green tinged. EXTREMITIES: Show no clubbing, cyanosis, or edema. HOSPITAL COURSE: On July 09, 2024, he underwent a midline laparotomy. The operation was prolonged, complicated, and difficult due to extensive intraabdominal adhesions, though vastly better than at time of his presentation on December 19. He was found to have a fistulous tract extending to a segment of small bowel with a small defect within it. Segmental resection of the segment with a fistula in continuity with the fistulous tract was accomplished. Care was taken to provide a tension-free anastomosis. An end-to-end enteroenterostomy was accomplished with a two-layer technique of interrupted 3-0 Vicryl mucosa and interrupted 3-0 silk on the serosal layer. There were no other findings of concern at operation. His postoperative course was quite unremarkable. He was begun on a clear liquid diet the night of surgery and advanced to ultimately a full liquid diet. In his particular case, I avoided initiating a solid food diet so as to not challenge his hand-sewn end-to-end enteroenterostomy. He will begin a low-fiber diet soon. By time of discharge he is ambulating well, tolerating his full liquid diet with good wound healing of the midline incision. Of note, the fistulous tract was "cored out" and continues to heal by secondary intention. DISCHARGE MEDICATIONS: 1. Flomax 0.4 mg p.o. daily #30. 2. Ibuprofen 600 mg p.o. q.6 hours as needed for pain #30, refill one. 3. Tylenol 500 mg two tablets p.o. q.6 hours as needed for pain #30, refill two. 4. Pepcid 20 mg p.o. b.i.d. #60, refill two. 5. Dilaudid 2 mg 1 to 2 tabs q.6 hours as needed for severe pain #20, no refill. 6. Continued use of tadalafil 20 mg p.o. p.r.n. 7. Fluticasone spray two sprays nasal as needed for allergies. Electronically Signed By: HOSSEIN CARRASCO MD 07/15/24 1835 PATIENT NAME: EKATERINA BLANTON DISCHARGE SUMMARY DATE OF : 62 REPORT #: [id number] PHYSICIAN: HOSSEIN CARRASCO MD PCP: SYMONE JEFFERS MD REPORT IS CONFIDENTIAL AND NOT TO BE RELEASED WITHOUT AUTHORIZATION [facility] [address] [place] [id number] Signed 8. Rosuvastatin 10 mg p.o. at bedtime. FOLLOW-UP PLANS: He is return to see me in two weeks at which point we will remove his skin rob. He is recommended to shower on a daily basis and allow soap and water to contact the midline incision and the right soft tissue wound defect as well. He is to lift no more than 20 pounds for the next four weeks. He is given a low-fiber dietary instruction. I have given him my cell phone number in case there are problems in the meantime. DISCHARGE DIAGNOSES: 1. Longstanding enterocutaneous fistula, status post definitive resection including small-bowel resection of fistulous tract on 07/09/2024. 2. History of robotic laparoscopic cholecystectomy and appendectomy with enterotomies in November 2023 (Dr. Tamia Chen, [place], [place]). 3. Subsequent repair of small bowel leakage with segmental bowel resection and stapled anastomosis in November 2023 (Dr. Gale) [place], [place]. 4. Septic shock with intraabdominal abscess and free air on December 20, 2023; emergency operation including laparotomy, drainage of intraabdominal abscess, repair of small bowel leak with application of omental patch and drainage and wound VAC. (Hossein Carrasco MD [facility], [facility]). Hossein Carrasco MD /MODL /[id number] cc: Dr. Tamia Chen [place], [place] Dr. Symone Jeffers [place] Dr. Gale [place] Electronically Signed By: HOSSEIN CARRASCO MD 07/15/24 1835 PATIENT NAME: EKATERINA BLANTON DISCHARGE SUMMARY DATE OF : 62 REPORT #: [id number] PHYSICIAN: HOSSEIN CARRASCO MD PCP: SYMONE JEFFERS MD REPORT IS CONFIDENTIAL AND NOT TO BE RELEASED WITHOUT AUTHORIZATION [address] [address] Signed Copies: ~ Electronically Signed By: HOSSEIN CARRASCO MD 07/15/24 1835 PATIENT NAME: EKATERINA BLANTON DISCHARGE SUMMARY DATE OF : 62 REPORT #: [id number] PHYSICIAN: HOSSEIN CARRASCO MD PCP: SYMONE JEFFERS MD REPORT IS CONFIDENTIAL AND NOT TO BE RELEASED WITHOUT AUTHORIZATION
== END 2024-07-13 10:15 | disposition home or self-care (01) | DRG 331 ==
LOC: DSVR 07-09 05:40 → MS 07-09 05:40
PROVIDERS: ADMIT Surgery; ATTEND Surgery
PROC: 0DNW0ZZ Release Peritoneum, Open Approach (ICD-10-PCS; 2024-07-09)
PROC: 0DB80ZZ Excision of Small Intestine, Open Approach (ICD-10-PCS; principal; 2024-07-09 09:00)
DX: K63.2 Fistula of intestine (principal); Z90.49 Acquired absence of other specified parts of digestive tract; K66.0 Peritoneal adhesions (postprocedural) (postinfection); Z86.19 Personal history of other infectious and parasitic diseases; Z79.899 Other long term (current) drug therapy
CPT/HCPCS: 00840; 36415; 76942; 80053; 85025; 87070; 87075; 87186; 87205; A9270; J0131; J0690; J1100; J1171; J1644; J1885; J2003; J2405; J2704; J2795; J3010; J3475; J3490; J7121

== ENCOUNTER 2024-07-15 21:22 | Inpatient (IN) | payer BC, OTHER ==
[~2024-07-15] VITALS: Ht 157.5 cm; Wt 73.0 kg
[~2024-07-15 21:22] MED LIST changes: +ADVIL LIQUI-GE200 MG PO; +DILAUDID2 MG PO; +FAMOTIDINE20 MG PO; +FLUTICASONE PRO16 GM NAS; +IBUPROFEN600 MG PO; +SEVOFLURANE 250 ML BTL INH ONE; +TYLENOL325 MG PO
[2024-07-15 21:46] LABS: BASOPHILS 1.1 % (0-2); EOSINOPHILS 4.5 % (0-6); HEMATOCRIT 37.4 % (35.0-50.0); HEMOGLOBIN 12.5 g/dL (12.0-18.0); LYMPHOCYTES 17.3 % (24-44); MCH 27.9 (27-36); MCHC 33.3 g/dl (30-36); MCV 83.7 fl (81-99); NEUTROPHILS 70.1 % (39-80); PLATELET COUNT 346 K/uL (140-440); RBC 4.47 M/ul (4.3-5.7); RDW 15.8 (10.5-15.0)
[2024-07-15 22:03] LABS: ALBUMIN 3.2 g/dL (3.4-5.0); ALBUMIN/GLOBULIN RATIO 0.74 (1.1-2.4); ANION GAP 12.6 (7-21); BILIRUBIN, TOTAL 0.3 ng/dL (0.2-1.0); BUN/CREATININE RATIO 11.82 (6.0-28.6); CALCIUM 8.9 mg/dL (8.5-10.1); CREATININE, SERUM 0.93 mg/dL (0.70-1.30); MAGNESIUM 2.3 mg/dL (1.8-2.4); POTASSIUM 3.6 mmol/L (3.5-5.1); PROTEIN, TOTAL 7.5 g/dL (6.4-8.2)
[2024-07-15] MEDS ORDERED: FAMOTIDINE 20 MG TAB PO SCH (22:22)
[2024-07-15] MEDS ORDERED: LACTATED RINGER'S 1,000 ML IV SCH ×2 (22:30)
[2024-07-15] MEDS ORDERED: metroNIDAZOLE/SODIUM CHLORIDE 500 MG/100 ML PIGGYBACK IV SCH (22:30)
[2024-07-15] MEDS ORDERED: DIATRIZOATE MEGLU/DIATRIZO SOD 15 ML BTL PO ONE (22:30)
[2024-07-15] MEDS ORDERED: levoFLOXacin 500 MG PIGGYBACK IV SCH (22:30)
[2024-07-15] MEDS ORDERED: HYDROmorphone HCL 2 MG TAB PO PRN (23:45)
--- NOTE | 2024-07-15 23:50 | NUR ---
PATIENT ARRIVED ON THE FLOOR VIA STRECHER. PATIENT ABLE TO TRANSFER FROM STRETCHER TO BED INDEPENDENTLY BY SCOOTING FROM ONE TO THE OTHER. REPORT RECIEVED FROM SOLO STONER. ADMISSION AND ASSESSMENT COMPELTED. PATIENT RATES PAIN 2/10. PATIENT ABLE TO URINATE CLEAR YELLOW URINE INTO THE URINAL. PATIENT DENIES ADDITIONAL NEEDS AT THIS TIME. CALL LIGHT IN REACH.
[2024-07-16] VITALS (9 sets, daily range): BP systolic 144–161; BP diastolic 71–93
[2024-07-16] MEDS ORDERED: HYDROmorphone HCL 2 MG TAB PO SCH (02:00)
--- NOTE | 2024-07-16 02:25 | NUR ---
IN ROOM TO ROUND ON PATIENT. PATIENT RESTING IN BED ON BACK WITH EYES CLOSED. RESPIRATIONS EVEN AND UNLABORED. NO NEEDS IDENTIFIED AT THIS TIME. CALL LIGHT IN REACH.
--- NOTE | 2024-07-16 04:10 | NUR ---
IN ROOM TO ROUND ON PATIENT. PATIENT INCISION WOUND ASSESSED. 15% SEROSANGUINOUS SHADOWING ON ABD PAD. PACKING GAUZE 90% SATURATED WITH SEROSANGUINOUS FLUID, PINK/RED IN COLOR. WOUND BASE PINK/RED WITH MINIMAL SLOUGH PRESENT. NO ODOR PRESENT. WOUND REPACKED WITH STERILE GAUZE AND COVERED WITH ABD PAD. PATIENT TOLERATED DRESSING CHANGE WELL. PREVIOUS HORACE DRAIN SITE ASSESSED. WOUND EDGES ARE BLACK IN COLOR AND DRESSING HAD SCANT SEROSANGUINOUS DRAINAGE. WOUND REDRESSED WITH GAUZE. PATIENT TOLERATED WELL. PATIENT DENIES ADDITIONAL NEEDS AT THIS TIME. CALL LIGHT IN REACH.
[2024-07-16 05:36] LABS: BASOPHILS 0.5 % (0-2); EOSINOPHILS 4.8 % (0-6); HEMOGLOBIN 11.2 g/dL (12.0-18.0); LYMPHOCYTES 14.2 % (24-44); MCH 28.1 (27-36); MCHC 34.1 g/dl (30-36); MCV 82.4 fl (81-99); MONOCYTES 8.1 % (0-12); NEUTROPHILS 72.4 % (39-80); PLATELET COUNT 294 K/uL (140-440); RDW 15.4 (10.5-15.0)
[2024-07-16] MEDS ORDERED: ACETAMINOPHEN 500 MG TAB PO SCH (06:00)
[2024-07-16] MEDS ORDERED: metroNIDAZOLE/SODIUM CHLORIDE 500 MG/100 ML PIGGYBACK IV SCH (06:00)
--- NOTE | 2024-07-16 06:18 | NUR ---
IN ROOM TO ADMINISTER MEDICATIONS, SEE E-MAR. PATIENT TOLERATED ORAL CONTRAST WELL. PATIENT DENIES ADDITIONAL NEEDS AT THIS TIME. CALL LIGHT IN REACH.
[2024-07-16] MEDS ORDERED: DIATRIZOATE MEGLU/DIATRIZO SOD 15 ML BTL PO ONE ×2 (07:00→07:20)
--- NOTE | 2024-07-16 07:23 | NUR ---
IN ROOM TO ADMINISTER MEDICATION, SEE E-MAR. PATIENT AMBULATED TO THE BATHROOM AND BACK TO BED WITHOUT DIFFICULTY. PATIENT ABLE TO VOID AND HAVE A BOWEL MOVEMENT WITHOUT DIFFICULTY. PATIENT DENIES ADDITIONAL NEEDS AT THIS TIME. CALL LIGHT IN REACH.
[2024-07-16] MEDS ORDERED: TADALAFIL20 M1 PO (07:28)
--- NOTE | 2024-07-16 07:28 | NUR ---
MED REC COMPLETE
--- NOTE | 2024-07-16 07:57 | NUR ---
Admin dilaudid 4mg po with small sip of water. Abdominal dressing saturated with light green/bloody drainage-New dressing placed.
--- NOTE | 2024-07-16 08:00 | NUR ---
Patient reported being in pain. RN Javier informed. NPO sign put on door.
--- NOTE | 2024-07-16 08:04 | NUR ---
Patient left unit to CT dept.
--- NOTE | 2024-07-16 11:23 | NUR ---
Patient is sitting up in their chair. Doctor in room doing assessment.
--- NOTE | 2024-07-16 11:38 | NUR ---
Midline abdominal dressing changed. Drainage is light yellow in color. New dressing placed.
--- NOTE | 2024-07-16 13:39 | NUR ---
Patient up to restroom to void. Abdominal dressing is CDI. Scheduled IV abx started. Patient denies nausea at this time. Encouarged patient to use call light if he has needs.
--- NOTE | 2024-07-16 13:40 | NUR ---
UR CLINICAL REVIEW: [facility]-MEETS CRITERIA FOR OBS STAY FOR WOUND AND SKIN MANAGEMENT KASSIE MCLEAN PPO OBS 07/15/24 @ 2124 ORDER MATCHES REG NO AUTH REQUIRED FOR OBS VISIT. WILL SEND RECORDS IF REQUESTED DISCHARGE TO HOME WHEN STABLE 07/17/24
--- NOTE | 2024-07-16 14:10 | NUR ---
Notified by Dr. James pt will need a wound vac. Pt has [employer] as insurance and [facility] does not accept this insurance as first or secondary. Completed the [employer] form and texted Dr. James I will leave for him to complete. He requested I fax to his office. Form faxed with a note stating what is needed to meet insurance requirements.
--- NOTE | 2024-07-16 14:43 | NUR ---
Patient is alert and orientated. Family in room.
--- NOTE | 2024-07-16 15:20 | NUR ---
Received the [employer] ([facility] form) with an RX for a wound vac from Dr. Wright office. Printed and faxed Face sheet, H&P, progress note from this admit. Surgery note, H&P, Dc summary from 07/09 admit and surgery and faxed to Yony Smith at [facility]. [phone] F, P. Called Yony and updated I have faxed a request for a wound vac. Also let him know, the Rx has a note stating pt was counseled on high protein diet and the reason for the need of a wound vac. He will let me know if they need any other documentation.
[2024-07-16] MEDS ORDERED: propofoL 200 MG/20 ML VIAL ONE (15:49)
[2024-07-16] MEDS ORDERED: KETOROLAC TROMETHAMINE 30 MG/ML VIAL ONE (15:49)
[2024-07-16] MEDS ORDERED: FAMOTIDINE 20 MG/ 2 ML VIAL ONE (15:49)
[2024-07-16] MEDS ORDERED: SUCCINYLCHOLINE IN 0.9% NACL 200 MG/10 ML SYRINGE ONE (15:49)
[2024-07-16] MEDS ORDERED: METOCLOPRAMIDE HCL 10 MG/2 ML SDV ONE (15:49)
[2024-07-16] MEDS ORDERED: DEXAMETHASONE SOD PHOS 4 MG/ML VIAL ONE (15:49)
[2024-07-16] MEDS ORDERED: LACTATED RINGER'S 1,000 ML IV ONE ×3 (15:49→22:50)
[2024-07-16] MEDS ORDERED: ondansetron HCL 4 MG/2 ML VIAL ONE (15:49)
[2024-07-16] MEDS ORDERED: ROCURONIUM BROMIDE 50 MG/5 ML SYR ONE (15:49)
[2024-07-16] MEDS ORDERED: SUGAMMADEX SODIUM 200 MG/2 ML ML ONE (15:49)
[2024-07-16] MEDS ORDERED: fentaNYL citrate 100 MCG/2 ML VIAL ONE (15:49)
[2024-07-16] MEDS ORDERED: MIDAZOLAM HCL 2 MG/2 ML VIAL ONE (15:50)
[2024-07-16] MEDS ORDERED: LIDOCAINE HCL 4% 5 ML AMP ONE (15:50)
--- NOTE | 2024-07-16 15:50 | NUR ---
Met with pt and his family. Multiple family members in the room. Pt denies any changes since his admission a few days ago. Plan remains he will go home to his house with and family. Daughter is living with them and drives pt if needed. Pt has a walker, but no longer uses. He has applied for [place] leave, OHP, food stamps and has been accepted by all.
--- NOTE | 2024-07-16 16:30 | NUR ---
AFTER PATIENT GOT BACK FROM THE BATHROOM DID HIS VITALS AND PUT THE SCDS ON. GOT HIM TWO WARM BLANKETS. FAMILY IN ROOM.
--- NOTE | 2024-07-16 17:14 | NUR ---
PATIENT LEFT UNIT WITH SURGERY DEPT NURSE.
[2024-07-16] MEDS ORDERED: DIGOXIN 500 MCG/2 ML AMP ONE (18:21)
[2024-07-16] MEDS ORDERED: HYDROCORTISONE SOD SUCCINATE 100 MG/2 ML VIAL ONE (18:21)
[2024-07-16] MEDS ORDERED: MORPHINE SULFATE 10 MG/ML VIAL ONE ×2 (18:25→23:08)
[2024-07-16] MEDS ORDERED: IBLOOD GLUCOSE TEST STRIP 1 EA TEST VI PRN (18:45)
[2024-07-16] MEDS ORDERED: PROCHLORPERAZINE EDISYLATE 10 MG/2 ML VIAL IV PRN (18:45)
[2024-07-16] MEDS ORDERED: MORPHINE SULFATE 10 MG/ML VIAL IV PRN (18:45)
[2024-07-16] MEDS ORDERED: NALOXONE HCL 0.4 MG SYR IV PRN (18:45)
[2024-07-16] MEDS ORDERED: fentaNYL citrate 50 MCG/ML SDV IV PRN (18:45)
[2024-07-16] MEDS ORDERED: METOCLOPRAMIDE HCL 10 MG/2 ML SDV IV PRN (18:45)
[2024-07-16] MEDS ORDERED: droPERidol 5 MG/2 ML VIAL IV PRN (18:45)
[2024-07-16] MEDS ORDERED: ondansetron HCL 4 MG/2 ML VIAL IV PRN (18:45)
[2024-07-16] MEDS ORDERED: SEVOFLURANE 250 ML BTL ONE (19:05)
--- NOTE | 2024-07-16 19:20 | NUR ---
RECEIVED REPORT FROM SOLO HERRERA. PT NOT IN ROOM, IN SURG. WHITE BOARD UPDATED. FAMILY IN ROOM.
--- NOTE | 2024-07-16 22:02 | NUR ---
CALL RECEIVED FROM PICTURE COPYIST JAG, pt REMAINS IN OR PREDICTS pt TO RETURN TO FLOOR IN "A COUPLE HOURS". AWAITING pt's ARRIVAL TO FLOOR. CUSTOMER SERVICE TRAINER LAURA AND PRIMARY RN AKIL BOTH MADE AWARE.
--- NOTE | 2024-07-16 23:00 | EKG ---
[facility] [address] [place] [address] Signed Normal sinus rhythm Normal ECG When compared with ECG of 22-DEC-2023 17:57, premature atrial complexes are no longer present Vent. rate has decreased BY 37 BPM Confirmed by Lyle Balderrama MD () on 07/16/2024 10:59:50 PM Electronically Signed By: LYLE BALDERRAMA MD 07/16/24 2300 PATIENT NAME: EKATERINA BLANTON Electrocardiogram DATE OF : 62 PHYSICIAN: LYLE BALDERRAMA MD REPORT #: [id number] REPORT IS CONFIDENTIAL AND NOT TO BE RELEASED WITHOUT AUTHORIZATION
[2024-07-16] MEDS ORDERED: ACETAMINOPHEN 1,000 MG/100 ML VIAL ONE (23:09)
[2024-07-17] VITALS (26 sets, daily range): BP systolic 112–191; BP diastolic 63–102
[2024-07-17] MEDS ORDERED: FAMOTIDINE 20 MG/ 2 ML VIAL IV SCH (01:11)
[2024-07-17] MEDS ORDERED: hydrALAZINE HCL 20 MG/ML VIAL IV PRN (01:15)
[2024-07-17] MEDS ORDERED: KETOROLAC TROMETHAMINE 15 MG/ML VIAL IV PRN (01:30)
[2024-07-17] MEDS ORDERED: HYDROmorphone HCL 1 MG/ML SYR IV PRN (01:30)
[2024-07-17] MEDS ORDERED: ACETAMINOPHEN 1,000 MG/100 ML VIAL IV PRN (01:30)
--- NOTE | 2024-07-17 01:33 | NUR ---
PATIENT CARE ASSUMED BY THIS RN AT THIS TIME, REPORT FROM PAULA RN AT BEDSIDE. PATIENT DROWSY BUT AROUSABLE EASILY, HE ENDORSES PAIN, THEN BACK TO SLEEP NOTED GRIMACE ON FACE. HIS IS AT BEDSIDE, EDUCATION PROVIDED AND PLAN OF CARE POST OP EXPLAINED, SHE HAS NO QUESTIONS, SHE REPORTS HER AND HER ARE FLUENT IN [place] AND HAVE NO NEED FOR BENCH TOOL MAKER, SHE IS ABLE TO VOICE BACK EDUCATION POINTS.
[2024-07-17] MEDS ORDERED: levoFLOXacin 500 MG PIGGYBACK IV ONE ×2 (01:45)
--- NOTE | 2024-07-17 01:48 | NUR ---
07/17/24 Kem8 Allegra Alejo 0045- PT ARRIVES TO ROOM 127 IN ICU FOR RECOVERY. PT IS NON REACTIVE TO STIMULUS, SEMI DAVIDSON POSITION. OPA IN PLACE, REQUIRES INTERMITTENT JAW LIFT AND HEAD REPOSITIONING TO MAINTAIN AIRWAY. O2 AT 6L PER MASK. LR HANGING TKO TO RFA IV. PT HAS 22G TO LH, SALINE LOCKED, UNDOCUMENTED, UNKNOWN START TIME. TYLENOL IV STARTED PER PICKLING OPERATOR. STOCKTON CATHETER IN PLACE, DRAINING CLEAR YELLOW URINE. WOUND VAC TO ABDOMEN AND ERVIN DRAIN IN PLACE RLQ. ALL MONITORS IN PLACE. ABD SOFT, NON DISTENDED. BREATHING EVEN AND NON LABORED. IN ROOM. 0100- PT REACTIVE TO VERBAL STIMULI, OPENS EYES AND FOLLOWS COMMANDS TO REMOVE OPA. PT REORIENTED TO PACU AND PROCEDURE COMPLETION. PT DENIES PAIN AND NAUSEA AND EASILY FALLS BACK TO SLEEP. O2 LEFT IN PLACE AT THIS TIME. 0105- PT O2 SATS REMAIN 100% ON 6L PER MASK, O2 REMOVED AT THIS TIME. WILL CONTINUE TO MONITOR. 0115- PT CONTINUES TO WAKE TO VERBAL STIMULI, DENIES PAIN AND NAUSEA. NO SIGNS OF DISTRESS AT THIS TIME. BP REMAINS HYPERTENSIVE, DR CARRASCO AWARE AND WILL PUT ORDERS IN TO ADDRESS BP. 0130- PT WAKES EASILY TO VERBAL STIMULI, PT RESPONDS YES TO PAIN AND FALLS RIGHT BACK TO SLEEP. UNABLE TO ASSESS SEVERITY AT THIS TIME. KAEL RN AT BEDSIDE, REPORT GIVEN. STOCKTON CATHETER AND ERVIN DRAIN EMPTIED. KAEL AWARE OF PT REPORT OF PAIN AND WILL CONTINUE TO MONITOR.
--- NOTE | 2024-07-17 02:09 | NUR ---
PATIENT CONTINUES TO HAVE SIGNIFICANT HTN DESPITE PRN OF HYDRALAZINE ADMINISTERED, CALLED , NEW ORDER FOR 5MG IV LOPRESSOR Q6P.
[2024-07-17] MEDS ORDERED: METOPROLOL TARTRATE 5 MG/5 ML VIAL IV PRN (02:15)
--- NOTE | 2024-07-17 02:29 | NUR ---
PATIENT IS MORE ALERT TO RN AT BEDSIDE AT THIS TIME, STARTING TO READJUST LEGS IN BED. NO DISTRESS NOTED OR REPORTED.
--- NOTE | 2024-07-17 03:03 | NUR ---
PATIENT SCORED 3/10 ON NON-VERBAL SCALE HE REMAINS DROWSY BUT AROUSES TO THIS RN AT BEDSIDE, HE DID VOICE "YES" TO THE QUESTION ARE YOU HAVEING PAIN?
--- NOTE | 2024-07-17 04:15 | NUR ---
PATIENT ALERT TO THIS RN AND LAB AT BEDSIDE. PATIENT GRIMACE, PAIN ASSESSMENT PATIENT SAID YES, PILLOW PROVIDED FOR ABD SPLINTING. DILAUDID PRN FOR PAIN.
[2024-07-17 04:22] LABS: BASOPHILS 0.1 % (0-2); HEMATOCRIT 36.7 % (35.0-50.0); HEMOGLOBIN 12.5 g/dL (12.0-18.0); LYMPHOCYTES 3.3 % (24-44); MCH 27.9 (27-36); MCV 82.2 fl (81-99); MONOCYTES 5.2 % (0-12); NEUTROPHILS 91.4 % (39-80); PLATELET COUNT 438 K/uL (140-440); RBC 4.46 M/ul (4.3-5.7); RDW 15.8 (10.5-15.0)
[2024-07-17 04:37] LABS: ALBUMIN 2.6 g/dL (3.4-5.0); ALBUMIN/GLOBULIN RATIO 0.67 (1.1-2.4); BILIRUBIN, TOTAL 0.5 ng/dL (0.2-1.0); BUN/CREATININE RATIO 8.69 (6.0-28.6); CALCIUM 8.1 mg/dL (8.5-10.1); CREATININE, SERUM 0.92 mg/dL (0.70-1.30); PROTEIN, TOTAL 6.5 g/dL (6.4-8.2)
--- NOTE | 2024-07-17 07:20 | NUR ---
REPORT RECEIVED FROM AERIAL PLANTING AND CULTIVATION MANAGER RN. PATIENT RESTING IN BED WITH EYES CLOSED. RESPIRATIONS EVEN AND UNLABORED. IVF SITE WNL. WOUND VAC IN PLACE AND FUCNTIONING WITHIN NORMAL LIMITS. NO NEEDS AT THIS TIME. CALL LIGHT WITHIN REACH.
--- NOTE | 2024-07-17 08:45 | NUR ---
PATIENT RESTING IN BED. NOTED FACIAL GRIMICING.PRN ADMINSTERED. WOUND VAC IN PLACE WITH SUCTION FUNCTIONING WNL AT THIS TIME. DRESSING APPEARS WNL. STOCKTON DRAINAING DARK YELLOW URINE. IV TO RFA WITH CONTINIOUS FLUIDS INFUSING WITH NO ISSUES OR CONCERNS. IV SITE TO LEFT ARM PATENT. LUNGS CTA, BOWEL TONES HYPOACTIVE AT THIS TIME. ABD APPEARS TO BE SLIGHTLY DISTENDED. PATIENT DENIES ANY PASSING OF GAS AT THIS TIME. DENIES ANY NAUSEA. ERVIN DRAIN DRAINING WITH NO ISSUES OR CONCERNS. AT BEDSIDE. VSS. NO FURTHER NEEDS. CALL LIGHT WITHIN REACH.
--- NOTE | 2024-07-17 09:20 | NUR ---
MESSAGE LEFT WITH MD TO CLARIFY ABX MEDICATION ORDER.
--- NOTE | 2024-07-17 09:41 | NUR ---
PATIENT C/O PAIN. IV TYLENOL ADMINSTERED. NO FURTHER NEEDS. CALL LIGHT WITHIN REACH.
--- NOTE | 2024-07-17 10:08 | NUR ---
UR CONCURRENT REVIEW: [facility]-PATIENT MEETS INPT CRITERIA FOR WOUND DRG KASSIE GIRALDO PPO CHANGE OF STATUS TO INPT PLACED 07/16/24 @ 0844 CLINICALS FAXED FOR AUTH REVIEW DISCHARGE TO HOME WHEN STABLE 07/19/24
--- NOTE | 2024-07-17 10:28 | NUR ---
PATIENT SLEEPING IN BED. ALLOWED TO REST AT THIS TIME.
--- NOTE | 2024-07-17 10:52 | NUR ---
SPOKE WITH SABRA AT [facility] TO DISCUSS WOUND VAC. STATES IT WAS APPROVED AND SHIPPED 07/16/24 AND SHOULD ARRIVE TODAY OR TOMORROW. DID INFORM [facility] IN PURCHASING, UNLIKELY DELIVERY TOMORROW DUE TO HOLIDAY. WILL PROBABLY ARRIVE 07/19/24.
--- NOTE | 2024-07-17 10:57 | NUR ---
PATIENT C/O PAIN. ICE PACK PROVIDED. PATIENT REPORTS ICE PACK IS TOO HEAVY AND INCREASES PAIN. PRN ADMINSTERED. SEE MAR.
--- NOTE | 2024-07-17 10:59 | NUR ---
PT NOT AVAILABLE FOR VISIT. PROVIDED PRAYER.
--- NOTE | 2024-07-17 11:09 | NUR ---
RN SPOKE WITH MD VIA PHONE CALL. WILL ADMINSTER SCHEDULED ABX AT THIS TIME.
--- NOTE | 2024-07-17 12:45 | NUR ---
DISCUSSED WITH DR. CARRASCO AND NURSING STAFF WOUND VAC ARRIVAL WILL LIKELY BE Monday07/19/24.
--- NOTE | 2024-07-17 12:55 | NUR ---
PATIENT SITTING UP IN RECLINER WITH FAMILY AT BEDSIDE. C/O PAIN 03/30 TO ABDOMEN. PRN GIVEN. IVF RATE INCREASED PER MD ORDER. PATIENT ABD REMAINS SLIGHTLY DISTENDED, BOWEL TONES HYPOACTIVE X [address] WOUND VAC IN PLACE AND FUNCTIONING WNL. LUNGS REAMIN CTA. SCDS IN PLACE. NO FURTHER NEEDS AT THIS TIME. CALL LIGHT WITHIN REACH.
--- NOTE | 2024-07-17 14:00 | NUR ---
PATIENT RESTING IN RECLINER. C/O PAIN. PRN ADMINSTERED. WOUND VAC IN PLACE WITH NO ISSUES OR CONERNS. IV ABX HUNG. NO FURTHER NEEDS AT THIS TIME. CALL LIGHT WITHIN REACH.
--- NOTE | 2024-07-17 14:51 | NUR ---
PATIENT ASSISTED BACK TO BED FROM RECLINER. STANDING WEIGHT OBTAINED. TOLELRATED TRANSFER WELL. NO FURTHER NEEDS CALL LIGHT WITHIN REACH.
--- NOTE | 2024-07-17 16:54 | NUR ---
PATIENT RESTING IN BED. WOUND VAC IN PLACE AND FUNCTIONING WNL. BOWEL TONES PRESENT X [address] VAC IN PLACE AND FUNCTIONING WNL. IV SITES PATENT. IVF INFUSING WITH NO ISSUES OR CONCERN. PATIENT WITH NO NEEDS AT THIS TIME. CALL LIGHT WITHIN REACH.
--- NOTE | 2024-07-17 17:08 | NUR ---
CONTACTED VIA PHONE TO DISCUSS LABS. NEW ORDERS RECEIVED AND VERIFIED VIA VERBAL READBACK. SEE MAR. NEW LAB ORDERS ENTERED FOR TOMORROW AM.
[2024-07-17] MEDS ORDERED: MAGNESIUM SULFATE 2 GM/50 ML BAG IV ONE (17:30)
--- NOTE | 2024-07-17 18:42 | NUR ---
PATIENT RESTING IN BED. IV SITES REMAINS WNL. WOUND VAC FUNCTIONING WNL. ERVIN DRAIN EMPTIED. STOCKTON CATH EMPTIED. PRN PAIN MEDICATION ADMINSTERED. NO FURTHER NEEDS AT BEDSIDE. CALL LIGHT WITHIN REACH.
--- NOTE | 2024-07-17 20:36 | NUR ---
PATIENT ADMINISTERED PRN TYLENOL IV, TORDOL PRN FOR PAIN 03/30 AFTER INFUSED 01/28, PATIENT HAS FAMILY IN ROOM TO VISIT. ASSESSMENT COMPLETE. NO DRAINAGE NOTED IN ERVIN DRAIN AND SMALL AMOUNT DRAINAGE NOTED IN WOUND VAC COLLECTION CONTAINER, SEROSANGUINOUS IN COLOR. PATIENT HAS NO OTHER COMPLAINTS OR REQUESTS AT THIS TIME.
--- NOTE | 2024-07-17 21:25 | NUR ---
ROUNDING, PATIENT ALERT AND ORIENTED, HE REPORTS MILD PAIN AT THIS TIME 12/28, HE SAID "THIS IS OK."
--- NOTE | 2024-07-17 23:00 | NUR ---
PATIENT ALERT AFTER MEDICATING WITH DILAUDID, PATIENT WILLING TO AMBULATE IN HALLS. TWO RN ASSIST TO GET OUT OF BED THEN SBA WITH FFW TO AMBULATE THE LENGTH OF CCU AND BACK TO ROOM, PATIENT TOLERATED WELL, STEADY GAIT. ONCE BACK TO BED PATIENT REPORTED PAIN 8/10 ABD. DILAUDID PRN ADMINISTERED. DISCUSSED WITH PATIENT THAT HE SOULD REST TONIGHT THE PLAN IS TO WALK FOUR TIMES TOMORROW. NO OTHER NEEDS VOICED, CALL LIGHT IN REACH.
[2024-07-18] VITALS (14 sets, daily range): BP systolic 108–139; BP diastolic 66–93
--- NOTE | 2024-07-18 02:13 | NUR ---
PATIENT RESTING IN BED, EYES CLOSED RESP RATE 14/MIN, NO DISTRESS NOTED, OFIRMEV PRN ADMINISTERED FOR BASE PAIN CONTROL.
--- NOTE | 2024-07-18 04:15 | NUR ---
TORDOL PRN ADMINISTERED AVAILABLE FOR BASE PAIN MANAGEMENT, PATIENT ALERT AND REPORTS PAIN 8/10 AT ABD, DILAUDID PRN ALSO ADMINISTERED. ASSESSMENT COMPLETE, NOTED ACTIVE BOWEL TONE X4 QUADRANTS.
[2024-07-18 05:52] LABS: BASOPHILS 0.3 % (0-2); EOSINOPHILS 1.2 % (0-6); HEMATOCRIT 29.8 % (35.0-50.0); HEMOGLOBIN 9.9 g/dL (12.0-18.0); LYMPHOCYTES 6.2 % (24-44); MCH 27.9 (27-36); MCHC 33.1 g/dl (30-36); MCV 84.2 fl (81-99); MONOCYTES 7.3 % (0-12); PLATELET COUNT 290 K/uL (140-440); RBC 3.54 M/ul (4.3-5.7); RDW 15.6 (10.5-15.0)
--- NOTE | 2024-07-18 06:24 | NUR ---
PATIENT REPORTS PAIN 8/10 AT ABD. PRN DILAUDID ADMINISTERED. HE IS ALERT AND ORIENTED, STOCKTON CARE COMPLETE. NO NEW CONCERNS AT THIS TIME.
--- NOTE | 2024-07-18 07:30 | NUR ---
REPORT RECEIVED FROM DOCTOR OF NURSE ANESTHESIA RN. PATIENT RESTING IN BED WITH EYES CLOSED. RESPIRATIONS EVEN AND UNLABORED. IVF INUSING WITH NO ISSUES OR CONCERNS. WOUND VAC WNL. CALL LIGHT WITHIN REACH.
--- NOTE | 2024-07-18 08:45 | NUR ---
PATIENT C/O PAIN. PRN ADMINSTERED. AM MEDICATIONS ADMINSTERED. ASSESSMENT COMPLETED. ALERT AND ORIENTED X4. LUNGS CTA. AFEBRILE AT THIS TIME. VSS. BOWEL TONES ACTIVE X 4 QUADRANTS HYPOACTIVE IN RLQ THIS AM. IV SITES PATENT. WOUND VAC DRESSING REMAINS CDI. WOUND VAC FUNCTIONING WNL. PATIENT WITH SCD'S IN PLACE. STOCKTON CATHERTER EMPTIED. URINE YELLOW IN COLOR. HORACE DRAIN EMPTIED 5ML OF SEROSANG DRAINAGE NOTED. PATIENT WITH NO FURTHER NEEDS AT THIS TIME.
--- NOTE | 2024-07-18 09:20 | NUR ---
PATIENT OOB FOR WALK IN THE SUE ON CCU UNIT. PATIENT TOLLERATED WALK WELL. 1 PA ASSIST WITH FWW. WEIGHT OBTAINED. BACK IN BED. NO FURTHER NEEDS CALL LIGHT WITHIN REACH.
--- NOTE | 2024-07-18 10:45 | NUR ---
PATIENT RESTING IN BED. WOUND VAC FUNCTIONING WNL. IVF INFUSING WITH NO ISSUES OR CONCERNS. DENIES ANY NEEDS AT THIS ITME. CALL LIGHT WITHIN REACH.
--- NOTE | 2024-07-18 12:33 | NUR ---
PATIENT RESTING IN BED. C/O PAIN 02/27 TO ABD MIDLINE. PRN ADMINSTERED, SEE MAR. AFEBRILE AT THIS TIME. VSS. BOWEL TONES ACTIVE X 4 QUADRANTS. WOUND VAC FUNCTIONING WNL. IV SITES PATENT. NO FURTHER NEEDS AT THIS TIME. CALL LIGHT WITHIN REACH.
--- NOTE | 2024-07-18 13:15 | NUR ---
PATIENT C/O 02/27. PRN ADMINSTERED. NO FURTHER NEEDS CALL LIGHT WITHIN REACH.
--- NOTE | 2024-07-18 13:44 | NUR ---
PATIENT OOB TO AMBULATE DOWN THE SUE ON THE UNIT. TOLLERATED WELL. WOUND VAC WNL. IVF INFUSING WNL. NO FURTHER NEEDS AT THIS TIME. CALL LIGHT WITHIN REACH.
--- NOTE | 2024-07-18 14:37 | NUR ---
PATIENT C/O PAIN. PRN ADMINISTERED. NO FURTHER NEEDS CALL LIGHT WITHIN REACH.
--- NOTE | 2024-07-18 15:10 | NUR ---
REPORT RECEIVED FROM SOLO METZ IN CCU.
--- NOTE | 2024-07-18 15:10 | NUR ---
REPORT GIVEN TO MED SURG NURSES. PATIENT TRANSPORTED TO MED SURG UNIT VIA BED.
--- NOTE | 2024-07-18 15:20 | NUR ---
PATIENT ARRIVED TO THE MEDICAL SURGICAL FLOOR. VITAL SIGNS TAKEN. PATIENT STATED NO FURTHER NEEDS AT THIS TIME. CALL LIGHT AND PERSONAL BELONGINGS ARE WITHIN REACH.
--- NOTE | 2024-07-18 15:30 | HP ---
[facility] [address], [place] [address] Signed ADMISSION DATE: 07/15/2024 REASON FOR ADMISSION: Midline wound infection. 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 Other details can be found in the discharge summary dictated on 07/13/2024. The patient underwent a midline laparotomy and resection of a fistulous tract and defect in the small bowel with end-to-end enteroenterostomy on July 09, 2024. He was discharged on 07/13/2024. The patient has been at home, instructed to shower on a daily basis, which he has. Midline incision was closed with hemoclips. He noted some egress of serous and possibly mucopurulent material earlier today and called me at home and I recommended him present to the emergency room since it was 9 o'clock at night where I met him and evaluated things. He has had no fever or chills. He is eating well without any other problem. He has had no actual green drainage from the wound to suggest recurrent fistula. He did show me a photo showing a copious amount of purulent material egressing from the wound. REVIEW OF SYSTEMS: He denies any shortness of breath or chest pain. He has had no actual air from the wound so far as could be told. PHYSICAL EXAMINATION: GENERAL: Pleasant white man who does not look systemically toxic. VITAL SIGNS: A temperature of 98.7, a pulse 78, blood pressure 173/95. SKIN: Midline incision shows separation of the skin with some clips. The clips were removed and in the depths of the wound was the mucopurulent subcutaneous space in the midportion. There is no evidence of bubbles or enteric contents. The sutures closing the fascia were well identified. There was no sign of fascial defect proper. Cultures were obtained as was Gram stain. LABORATORY STUDIES: Showed a white count of 11.0, hematocrit 37.4, platelets 346,000. Chem profile essentially normal. Bicarb was 29, glucose 125, albumin 3.2. ASSESSMENT AND PLAN: Meticulous care was made in dissection of his abdominal contents on the 08 June 2020 and he suffered no enterotomy through the course of dissection. The fistulous Electronically Signed By: HOSSEIN CARRASCO MD 07/18/24 1530 PATIENT NAME: EKATERINA BLANTON HISTORY AND PHYSICAL DATE OF : 62 REPORT #: [id number] PHYSICIAN: HOSSEIN CARRASCO MD PCP: SYMONE JOSEPH MD REPORT IS CONFIDENTIAL AND NOT TO BE RELEASED WITHOUT AUTHORIZATION [facility] [address], [place] [address] Signed opening was identified as was the fistulous tract, which was resected. An end-to-end enteroenterostomy undertaken with meticulous care using hand-sewn technique. I do not see definitive finding of a recurrent fistula or anastomotic disruption at this time, now anything is possible of course. The simple wound infection is the most likely thing. I have packed the wound with plain gauze and we will admit him to the hospital with broad-spectrum antibiotics and consider for CT scan with GI contrast tomorrow morning after monitoring overnight as regard to the wound drainage and its character. If enteric drainage is noted, then exploration will be required promptly. So far that has not been the case. I am hopeful and optimistic this represents only a wound infection rather than other intraabdominal process, which would be more calamitous. He understands all of this rationale and agrees. MD JOAN Bates/KAILEYL /[id number] Copies: ~ Electronically Signed By: HOSSEIN CARRASCO MD 07/18/24 1530 PATIENT NAME: EKATERNIA BLANTON HISTORY AND PHYSICAL DATE OF : 62 REPORT #: [id number] PHYSICIAN: HOSSEIN CARRASCO MD PCP: SYMONE JOSEPH MD REPORT IS CONFIDENTIAL AND NOT TO BE RELEASED WITHOUT AUTHORIZATION
--- NOTE | 2024-07-18 16:15 | NUR ---
MEDICATION ADMINISTERED PER MAR, INITIAL ASSESSMENT COMPLETE. PT LUNG SOUNDS CLEAR TO BUL WITH FINE CRACKLES IN BLL. PT ENCOURAGED TO SPLINT HIS ABDOMEN WITH A PILLOW, COUGH, AND DEEP BREATHE TO ASSIST IN CLEARING SECRETIONS. PT EXPRESSES UNDERSTANDING. HEART TONES HEARD WNL. BOWEL SOUNDS HYPOACTIVE, ABDOMEN WITH MODERATE DISTENTION, PT REPORTS ABDOMINAL PAIN IS A 7/10, PRN PAIN MEDICATION ADMINISTERED SEE MAR. PT REPORTING NO NAUSEA AT THIS TIME. PTs WOUNDVAC IS IN PLACE TO MIDLINE INCISION, DRESSING IS C/D/I. RLQ HAS HORACE DRAIN INSERTION COVERED IN GAUZE, HORACE DRAIN CURRENTLY SUCTIONED WITH SEROSANGUINEOUS DRAINAGE IN THE BULB. PT PULSES ARE 2+ IN ALL FOUR EXTREMETIES, PT REPORTS NO NUMBNESS OR TINGLING IN HIS HANDS OR FEET. PT REPORTS PREVIOUS R SHOULDER INJURY WHICH LIMITS RANGE OF MOTION IN HIS R SHOULDER AND HE EXPERIENCES NUMBNESS AND TINGLING IN THE SHOULDER. PT HAS TWO IVs IN R ARM, BOTH FLUSH WNL. IVF INFUSING PER ORDERS. NO OTHER NEEDS AT THIS TIME, CALL LIGHT AND PERSONAL BELONGINGS IN REACH.
--- NOTE | 2024-07-18 17:08 | NUR ---
PT RESTING IN BED WITH EYES CLOSED, RESPONDS WHEN THIS RN ENTERS THE ROOM. NO REQUESTS AT THIS TIME, CALL LIGHT AND PERSONAL BELONGINGS IN REACH.
--- NOTE | 2024-07-18 19:36 | NUR ---
REPORT RECIEVED FROM DAY SHIFT RN. PATIENT RESTING IN BED REPORTING 8/10 ABD PAIN. PRN PAIN MEDICATION ADMINSITERED. NO FURTHER NEEDS AT THIS TIME. CALL LIGHT IN REACH.
--- NOTE | 2024-07-18 21:07 | NUR ---
SLEEVE MACHINE TENDER OBTAINED VITALS AND OUTPUT. PT URINAL EMPTIED. PT STATES NO FURTHER NEEDS AT THIS TIME. ZACHERY BANDA NOTIFED OF IV PUMP ALARMING. CALL LIGHT WITHIN REACH AND FAMILY IN ROOM.
--- NOTE | 2024-07-18 22:20 | NUR ---
PATIENT REPORTS 7 ABD PAIN. PRN PAIN MEDICATION ADMINSITERED. ASSESSMENT COMPLETE. PATIENT ABD DRESSING C/D/I. SCDs IN PLACE. IVs FLUSH WNL. PATIENT DENIES FURTHER NEEDS AT THIS TIME. CALL LIGHT IN REACH.
--- NOTE | 2024-07-18 23:53 | NUR ---
PATIENT RESTING IN BED ON BACK WITH EYES CLOSED. RESPIRATIONS EVEN AND UNLABORED. CALL LIGHT IN REACH.
[2024-07-19] VITALS (9 sets, daily range): BP systolic 144–159; BP diastolic 76–92
--- NOTE | 2024-07-19 02:08 | NUR ---
CALL LIGHT ANSWERED. PATIENT REPORTS 8/10 ABD PAIN. PRN PAIN MEDICATION ADMINSITERED PER PATIENT REQUEST. NO FURTHER NEEDS AT THIS TIME CALL LIGHT IN REACH.
--- NOTE | 2024-07-19 04:19 | NUR ---
PATIENT RESTING IN BED ON BACK WITH EYES CLOSED. RR EVEN AND UNLABORED. CALL LIGHT IN REACH.
[2024-07-19 05:31] LABS: BASOPHILS 0.5 % (0-2); EOSINOPHILS 1.3 % (0-6); HEMATOCRIT 26.2 % (35.0-50.0); HEMOGLOBIN 8.9 g/dL (12.0-18.0); LYMPHOCYTES 10.4 % (24-44); MCH 28.1 (27-36); MCHC 33.7 g/dl (30-36); MCV 83.4 fl (81-99); MONOCYTES 5.2 % (0-12); NEUTROPHILS 82.6 % (39-80); PLATELET COUNT 311 K/uL (140-440); RBC 3.15 M/ul (4.3-5.7); RDW 15.7 (10.5-15.0)
[2024-07-19 05:48] LABS: ALBUMIN 1.9 g/dL (3.4-5.0); ALBUMIN/GLOBULIN RATIO 0.51 (1.1-2.4); ANION GAP 14.6 (7-21); BILIRUBIN, TOTAL 0.3 ng/dL (0.2-1.0); BUN/CREATININE RATIO 14.77 (6.0-28.6); CREATININE, SERUM 0.88 mg/dL (0.70-1.30); MAGNESIUM 2.2 mg/dL (1.8-2.4); POTASSIUM 3.6 mmol/L (3.5-5.1); PROTEIN, TOTAL 5.6 g/dL (6.4-8.2)
--- NOTE | 2024-07-19 06:40 | NUR ---
PATIENT RESTING IN BED. VS AND I&Os OBTAINED AND RECORDED. PATIENT ABD DRESSING C/D/I. HORACE DRAIN OUTPUT THIS SHIFT WAS 5 mL OF SEROSANGUINEOUS DRAINAGE. PATIENT WOUND VAC HAS SCANT AMOUNT OF DRAINAGE. FRESH ICE CHIPS PROVIDED. PATIENT HAS NO FURTHER NEEDS. CALL LIGHT IN REACH.
--- NOTE | 2024-07-19 07:18 | NUR ---
REPORT RECEIVED FROM SOLO SOTOMAYOR. PT RESTING IN BED WITH EYES CLOSED, RR EVEN AND UNLABORED. SCDs IN PLACE. CALL LIGHT IN REACH.
--- NOTE | 2024-07-19 07:46 | NUR ---
MEDICATION ADMINISTERED, SEE MAR. PT REPORTING THAT HIS EYES HURT. COLD WASHCLOTH PROVIDED, FRESH ICE CHIPS PROVIDED. PTs SPOUSE PRESENT ON COUCH THROUGHOUT. NO OTHER NEEDS AT THIS TIME, CALL LIGHT AND PERSONAL BELONGINGS IN REACH.
--- NOTE | 2024-07-19 08:26 | NUR ---
PT CONTINUES REPORTING PAIN AT AN 8/10, PRN PAIN MEDICATION ADMINISTERED PER ORDERS. NO OTHER NEEDS AT THIS TIME, SCDs IN PLACE, WOUNDVAC IN PLACE. CALL LIGHT IN REACH.
--- NOTE | 2024-07-19 09:50 | NUR ---
INITIAL ASSESSMENT COMPLETE. PT ASSISTED TO CHANGE HIS GOWN HE HAD GOTTEN SWEATY IN THE NIGHT. LUNG SOUNDS CLEAR BUL, FINE CRACKLES BLL. PT ENCOURAGE TO BREATHE DEEP AND USE IS. PT HAS OCCASIONAL NON-PRODUCTIVE COUGH. PT HEART TONES HEARD WNL, BOWEL TONES HYPOACTIVE IN ALL FOUR QUADRANTS. PT REPORTS NO NAUSEA. ABDOMEN MILDLY DISTENDED, NON-TENDER TO PALPATION. PT STATES HE HAS BEEN HAVING FLATULENCE. CURRENTLY RATES HIS PAIN A 4/10, REQUESTING NO FURTHER INTERVENTION AT THIS TIME ONLY HIS SPLINTING PILLOW. PULSES 2+ IN ALL FOUR EXTREMETIES, TRACE EDEMA NOTED TO BLE. SCDs IN PLACE, WOUNDVAC IN PLACE AND SUCTIONING AT 120MMHG. HORACE DRAIN HAS SEROSANGUINOUS DRAINAGE IN IT, STILL ACTIVELY WITH SUCTION. WARM BLANKET PROVIDED. VS AND I&O RECORDED. NO OTHER NEEDS AT THIS TIME, CALL LIGHT AND PERSONAL BELONGINGS IN REACH.
--- NOTE | 2024-07-19 11:09 | OR ---
[facility] [address], [place] [address] Signed DATE OF OPERATION: 07/17/2024 SURGEON: Hossein Carrasco MD PREOPERATIVE DIAGNOSES: 1. Midline incision with wound infection and bilious drainage. 2. 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 POSTOPERATIVE DIAGNOSES: 1. Midline incision with wound infection and bilious drainage. 2. 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 3. 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 4. NO obious source of biliary drainage; intact recent enteric anastomosis PROCEDURES: 1. Exploration of abdomen with prolonged and extensive lysis of adhesions. 2. Segmental small bowel resection x2 including proximal jejunum and distal ileum; jejunal anastomosis [id number] stapled and distal anastomosis end-to-end hand-sewn. 3. Omental pedicle graft to anastomotic area, upper abdomen. 4. Application of wound VAC device. 5. Debridement of right lower abdominal wall fistula site, right mid abdomen. ASSISTANTS: 1. Niharika Lazo RN. 2. Jose Bermudez RN. ANESTHESIA: General endotracheal; Hossein Hemphill CRNA. 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 Operation consisted of segmental resection of small bowel contiguous with the fistulous tract and some lysis of adhesions as well as debridement of the fistulous tract to the abdominal wall and repair. The patient did quite well initially following operation, but by day seven postop had egress of noxious fluid from the midline incision with obvious wound infection. Cultures from operation showed a multitude of pathogenic organisms including Serratia marcescens. He presented to the emergency room on July 15 and was directly admitted to the hospital by me after removal of his wound clips and packing of the wound. The following morning (day of operation dressing change showed egress of some bilious fluid that was not copious in Electronically Signed By: HOSSEIN CARRASCO MD 07/19/24 1109 PATIENT NAME: EKATERINA BLANTON OPERATIVE REPORT DATE OF : 62 REPORT #: [id number] PHYSICIAN: HOSSEIN CARRASCO MD PCP: ANUPAM JEFFERS MD REPORT IS CONFIDENTIAL AND NOT TO BE RELEASED WITHOUT AUTHORIZATION [facility] [address], [place] [address] Signed amount). On the basis of these findings and concern regarding anastomotic leakage or other similar problem, I have recommended exploration of the abdomen and remedy of the problem. The risk of bleeding, infection, need for additional procedures, and other unforeseen complications was reviewed with the patient and his family, they understand and wished to proceed. FINDINGS: Indeed there was a significant infection of the wound including the abdominal fascia. Profound and extensive adhesions far more than would be expected on postoperative day seven were noted. Strong suspicion exists that he may have an underlying granulomatous enteritis in part accounting for his maladies of fistula and so forth. The anastomosis most recently performed was completely intact and without evidence of leak. There were several areas of bowel including the previous anastomosis performed elsewhere that were intensely involved in the inflammatory process. Complete freeing of the small bowel was undertaken, which was extremely prolonged and difficult. Total operative time was essentially 6-1/2 hours. Ultimately, all bowel that was intensely inflamed and scarred and likely involved in occult bile leakage were resected. This included a segment in the proximal bowel in continuity with the previous anastomosis performed elsewhere and incorporating the most recent anastomosis I performed as well as a segment of distal small bowel ( ileum ) with preservation of ileocecal valve. The more proximal anastomosis was performed in a [id number] stapled fashion and the distal anastomosis of the ileum in an end-to-end hand-sewn configuration. An omental pedicle graft was applied to the more proximal anastomotic area as well as fibrin glue to both distal and proximal anastomoses. Completely viable and healthy bowel remains though with some edema and inflammation would be expected otherwise. DESCRIPTION OF PROCEDURE: The patient was brought to the operating room, given a general endotracheal anesthetic. Ongoing antibiotics included Levaquin and Flagyl. A Whaley catheter was placed. Sequential compression device stockings were used. The remaining clips from the mid abdomen were removed. Removal of the dressing showed bile staining of the gauze. The abdomen was prepared with a Betadine based solution and draped sterilely. The previous PDS suture was removed. The fascial edges appeared to be gummy and inflamed, but were intact. Upon entry to the abdomen, considerable amount of inflammatory dense adhesive changes were noted-- far more than would be expected for postop day seven actually. At that point, opening of the abdomen with freeing of the bowel from the overlying fascia on both right and left sides of the midline incision was undertaken. Profound inflammatory effects were noted. The previous anastomosis was deeper within the abdomen and certainly not superficial. There was no clear evidence of the site of bile leak at first inspection. Meticulous care was taken in dissecting interloop adhesions with both sharp electrocautery and blunt dissection, avoiding enterotomy throughout. The Electronically Signed By: HOSSEIN CARRASCO MD 07/19/24 1109 PATIENT NAME: EKATERINA BLANTON OPERATIVE REPORT DATE OF : 62 REPORT #: [id number] PHYSICIAN: HOSSEIN CARRASCO MD PCP: ANUPAM JEFFERS MD REPORT IS CONFIDENTIAL AND NOT TO BE RELEASED WITHOUT AUTHORIZATION [facility] [address], [place] [address] Signed extent of inflammatory change was dominantly on the right side. Upon entry to the left side of the abdomen soft, normal bowel was noted without sign of enteric defect or other problem. Dissection was carried out to identify the previously anastomosed segment of bowel which though thickened and intensely inflamed but was certainly intact without sign of enteric leakage or discrete fistulous opening. This posed great concern as the source of his enteric drainage was completely mysterious. Given the underlying findings and concern for possible granulomatous enteritis, it is deemed most advisable to free up all of the abnormal bowel that would likely include an occult enteric leakage point. This necessitated extremely lengthy dissection ultimately freeing the interloop adhesions with dense inflammatory changes. Some interloop segements were nearly contiguous with the extent of chronic and acute inflammation. Two dominant segments of bowel were involved in this process. One, the proximal jejunal area, the other in the distal small bowel (the ileum). Both of these areas, once completely freed up, were inspected and designated as appropriate for resection back to entirely normal bowel. the more proximal segment with included a previous stapled anastomosis was resected first. The mesentery-- which was thickened and inflamed --was sequentially secured with clamps and ultimately oversewn with 2-0 stick ties isolating that segment of bowel completely. The segment of bowel that was completely viable was then transected with JOSHUA stapling device, 60 mm in length. The segment of bowel was sent for Pathology and request was made for birefringent examination to confirm a suspicion of granulomatous enteritis. A mqjz-hn-ncye staple anastomosis was undertaken using an 80 mm stapling device. Both bowel loops had been aligned with 3-0 silk suture. The corner of the staple line excised and firing of the staple device effective and without sign of bleeding, leakage or other problem. There is no encumbrance of the mesentery. The opened end was then oversewn in a two-layer technique of interrupted 3-0 Vicryl and interrupted 3-0 silk suture. The mesenteric defect was secured with 3-0 silk sutures as well. The anastomosis appeared to be quite viable and widely patent. Attention was turned towards the distal segment of small bowel. This was resected approximately 10 cm from the ileocecal valve proper and more proximally to include markedly inflamed and distorted small bowel. With similar technique, the mesentery was secured. It too was quite thick and a markedly abnormal related to inflammation. There was no creeping fat per se in any segment of small bowel. Given the distance from the ileocecal valve proper an end-to-end anastomosis by hand-sewn technique was undertaken. This included an interrupted 3-0 Vicryl mucosal layer and a serosal interrupted 3-0 silkn layer. The mesenteric defect was closed with 3-0 silk suture. Irrigation was undertaken with Electronically Signed By: HOSSEIN CARRASCO MD 07/19/24 1109 PATIENT NAME: EKATERINA BLANTON OPERATIVE REPORT DATE OF : 62 REPORT #: [id number] PHYSICIAN: HOSSEIN CARRASCO MD PCP: ANUPAM JEFFERS MD REPORT IS CONFIDENTIAL AND NOT TO BE RELEASED WITHOUT AUTHORIZATION [address] [address] Signed sterile saline and ultimately IrriSept (dilute chlorhexidine solution). A right lower quadrant stab incision was made and a a 7 mm flat Quentin drain was placed along the right pericolic border. Omentum had been markedly contracted more proximally. This was dissected free and allowed to become more mobile to apply to the proximal stapled anastomosis. It was of a length that it could reasonably cover the more proximal anastomosis. Tisseel (fibrin glue) was applied to each anastomotic area including the more proximal stapled anastomosis. The omental pedicle graft was then secure to the area with a few silk sutures. Milking of the small bowel showed no leakage through either anastomotic area. There was surgical absence of the gallbladder it was noted and surgical absence of the appendix also. Notably in the region of the appendiceal stump marked inflammation had been noted but with no enteric defect and only scarring related to the previous appendectomy performed at index operation in November. Plans were then made for closure. The midline fascia was reapproximated with running #1 PDS suture with interspersed interrupted internal retention sutures of #1 PDS also. The right-sided fistulous tract had a somewhat necrotic appearance and this was debrided with sharp dissection. A wound VAC was deemed most appropriate for the wound mostly to stabilize the fascia, induce granulation while stabilizing the tenuous fascia and provide for drainage from the wound. This was configured despite the wound being narrow. The wound vac device was attached to 120 mm Hg continuous suction pressure. The patient was ultimately extubated and transported to the intensive care unit for further management. Operation was prolonged, complicated, and difficult lasting essentially 7 hours. Blood loss was approximately 200 mL. Sponge, needle and instrument counts reported as correct x3. MD JONA Bates/MONICA /[id number] Electronically Signed By: HOSSEIN CARRASCO MD 07/19/24 1109 PATIENT NAME: EKATERINA BLANTON OPERATIVE REPORT DATE OF : 62 REPORT #: [id number] PHYSICIAN: HOSSEIN CARRASCO MD PCP: ANUPAM JEFFERS MD REPORT IS CONFIDENTIAL AND NOT TO BE RELEASED WITHOUT AUTHORIZATION [address] [address] Signed cc: Dr. Anupam Jeffers [place], [place] Copies: ~ Electronically Signed By: HOSSEIN CARRASCO MD 07/19/24 1109 PATIENT NAME: EKATERINA BLANTON OPERATIVE REPORT DATE OF : 62 REPORT #: [id number] PHYSICIAN: HOSSEIN CARRASCO MD PCP: ANUPAM JEFFERS MD REPORT IS CONFIDENTIAL AND NOT TO BE RELEASED WITHOUT AUTHORIZATION
--- NOTE | 2024-07-19 11:55 | NUR ---
PATIENT IS LYING IN BED WITH EYES CLOSED AND RESPIRATIONS ARE EVEN AND UNLABORED. PATIENT IS LOOKING OUT THE WINDOW. CALL LIGHT AND PERSONAL BELONGINGS ARE WITHIN REACH.
--- NOTE | 2024-07-19 12:38 | NUR ---
PT WALKS ONE LAP IN THE SUE WITH FWW AND SBA FOR LINE AND TUBE MANAGEMENT. PT REPORTS PAIN IS A 7/10 AT THE END OF THE WALK, PRN PAIN MEDICATION ADMINISTERED PER ORDERS, SEE MAR. PT RETURNS TO BED, SCDs IN PLACE, WOUNDVAC IN PLACE AND SUCTIONING AT 120MMHG. NO OTHER NEEDS AT THIS TIME, CALL LIGHT IN REACH.
--- NOTE | 2024-07-19 12:46 | NUR ---
Today patient is awake, alert and oriented to person place and time. He states that he is feeling better. He feels his care has been good while in the Hospital. Patient states that he lives with his and daughter, states his daughter helps him move around, daughter is also his production truck driver as his does not have a drivers license. Patient feels like between his and daughter that htey can meet his home needs when discharged. Patient states that his insrance can pay for most of his medications. Patient states he can pay his utilities and other care needs at this time. Patient denies concerns at this time. He does discuss that he hopes that "this does not happen too many times." Stating "no more, too many." does not answer for patients and has no comments during this interaction.
--- NOTE | 2024-07-19 13:27 | NUR ---
PT RESTING IN BED WITH EYES CLOSED. SCDs IN PLACE, WOUNDVAC ATTACHED TO FOOT OF BED. PT IS CONVERSING WITH WHO IS SITTING ON THE COUCH. IVF INFUSING WNL. CALL LIGHT IN REACH, NO NEEDS NOTED.
--- NOTE | 2024-07-19 14:04 | NUR ---
PATIENT IN BED AT THIS TIME. SCREENER PERFUMER CHARTED VITALS AND I&O'S. CALL LIGHT WITHIN REACH, NO FURTHER NEEDS AT THIS TIME.
--- NOTE | 2024-07-19 14:22 | NUR ---
PT REPORTS PAIN LEVEL IS A 5/10 AND TOLERABLE, NO INTERVENTIONS AT THIS TIME. DRINKS SUPPLIED. PT HAS MULTIPLE VISITORS IN HIS ROOM AT THIS TIME. CALL LIGHT IN REACH.
--- NOTE | 2024-07-19 16:05 | NUR ---
PATIENT IS AMBULATING IN THE MEDICAL-SURGICAL FLOOR WITH SOLO BURNS. FLAGYL 1400 DOSE COMPLETE. THIS RN FLUSHED PATIENT IV SITE AT THIS TIME. PATIENT STATED NO FURTHER NEEDS. PATIENT RETURNS TO WALKING AT THIS TIME.
--- NOTE | 2024-07-19 16:22 | NUR ---
GRAB JACK WORKER WALKED WITH PATIENT 2 LAPS. GRAB JACK WORKER ASSISTED PATIENT BACK TO BED AFTER THE LAPS. CALL LIGHT WITHIN REACH, NO FURTHER NEEDS AT THIS TIME.
--- NOTE | 2024-07-19 16:42 | NUR ---
SECOND ASSESSMENT COMPLETE. PT RESTING IN BED, SPOUSE RESTING ON COUCH NEARBY. PT BOWEL TONES ARE HYPOACTIVE IN ALL FOUR QUADRANTS, PT REPORTS NO NAUSEA AT THIS TIME AND HAVING "A LOT!" OF FLATULENCE. HORACE DRAIN IN RLQ INTACT WITH SCANT DRAINAGE, WOUND VAC DRESSING C/D/I WITH WOUNDVAC SUCTIONING AT 120MMHG. PT REPORTS PAIN IS A 7/10 RIGHT NOW, NOT REQUESTING MEDICATIONS OR INTERVENTION AT THIS TIME. NO OTHER NEEDS, CALL LIGHT IN REACH.
--- NOTE | 2024-07-19 17:52 | NUR ---
GRANT MAYES ASSISTING PT RIGHT NOW
--- NOTE | 2024-07-19 18:34 | NUR ---
PATIENT IN BED AT THIS TIME. TIP SCOURER CHARTED VITALS AND I&O'S. TIP SCOURER WALKED 1 LAP WITH PATIENT. PATIENT WANTED TO GO BACK TO BED. CALL LIGHT WITHIN REACH, NO FURTHER NEEDS AT THIS TIME.
--- NOTE | 2024-07-19 18:49 | NUR ---
PATIENT IS LYING IN BED WITH HIS SITTING IN THE CHAIR AT BEDSIDE. PRN DILAUDID AND TORADOL ADMINISTERED PER THE EMAR FOR PATIENT PAIN RATED 8/10 AT THE MIDLINE ABDOMEN SITE. PATIENT GIVEN A JELLOW PER REQUEST. FRESH CUP OF ICE WATER GIVEN TO THE PATIENTS . PATIENT STATED NO FURTHER NEEDS AT THIS TIME. CALL LIGHT AND PERSONAL BELONGINGS ARE WITHIN REACH.
--- NOTE | 2024-07-19 19:28 | NUR ---
REPORT RECIEVED FROM DAY SHIFT RN. PATIENT RESTING IN BED. DENIES NEEDS AT THIS TIME. CALL LIGHT IN REACH.
--- NOTE | 2024-07-19 20:36 | NUR ---
CALL LIGHT ANSWERED. PT NEEDED TO USE BATHROOM. SAMPLE PASTER 1PA WITH FWW TO BATHROOM. PT HAD BM AND ASSISTED BACK TO BED. WOUND VAC AND SCDS PLUGGED IN. SAMPLE PASTER THEN OBTAINED AND DOCUMENTED VITALS AND I&O. PT GIVEN WARM BLANKET UPON REQUEST. PT STATES NO FURTHER NEEDS AT THIS TIME. CALL LIGHT WITHIN REACH AND FAMILY MEMBER IN ROOM.
--- NOTE | 2024-07-19 22:20 | NUR ---
PATIENT RESTING IN BED. SCHEDULED MEDICATION ADMINISTERED. PATIENT REPORTS 03/30 ABD PAIN. PRN PAIN MEDICATION ADMINISTERED PER PATIENT REQUEST. ABD DRESSINGS C/D/I. HORACE DRAIN OUTPUT 5mL OF SEROSANGUINEOUS DRAINAGE. SCDs IN PLACE. WOUND VAC IN PLACE. PATIENT DENIES FURTHER NEEDS AT THIS TIME. CALL LIGHT IN REACH.
--- NOTE | 2024-07-19 22:50 | NUR ---
BATHROOM CALL LIGHT ANSWERED. PT STATED HE WAS READY FOR A WALK. MELTER LOADER SBA PT WITH FWW FOR 1 LAP AROUND UNIT. PT GAIT STEADY. PT STATED THAT HE DID NOT WANT TO WALK ANOTHER LAP AND PT WAS ASSISTED BACK INTO BED. WOUND VAC PLUGGED BACK IN AND SCDS PLACED BACK ON PT LEGS. PT STATES NO FURTHER NEEDS AT THIS TIME. CALL LIGHT WITHIN REACH.
[2024-07-20] VITALS (9 sets, daily range): BP systolic 143–170; BP diastolic 85–101
--- NOTE | 2024-07-20 00:27 | NUR ---
PATIENT RESTING IN BED ON BACK WITH EYES CLOSED. RR EVEN AND UNLABORED. CALL LIGHT IN REACH.
--- NOTE | 2024-07-20 02:38 | NUR ---
PATIENT RESTING IN BED ON BACK WITH EYES CLSOED. RR EVEN AND UNLABORED. CALL LIGHT IN REACH.
--- NOTE | 2024-07-20 03:51 | NUR ---
PATIENT RESTING IN BED ON BACK WITH EYES CLOSED. RESPIRATIONS EVEN AND UNLABORED. CALL LIGHT IN REACH.
[2024-07-20 05:47] LABS: BASOPHILS 0.9 % (0-2); EOSINOPHILS 3.9 % (0-6); HEMATOCRIT 25.3 % (35.0-50.0); HEMOGLOBIN 8.6 g/dL (12.0-18.0); LYMPHOCYTES 11.7 % (24-44); MCH 28.5 (27-36); MCV 83.8 fl (81-99); MONOCYTES 4.9 % (0-12); NEUTROPHILS 78.6 % (39-80); PLATELET COUNT 314 K/uL (140-440); RBC 3.03 M/ul (4.3-5.7); RDW 15.1 (10.5-15.0)
--- NOTE | 2024-07-20 06:44 | NUR ---
PATIENT RESTING IN BED. ABD DRESSINGS C/D/I. 5 mL SEROSANGUIENOUS DRAINAGE OUT THIS SHIFT. PATIENT REPORTING 8/10 ABD PAIN. PRN PAIN MEDICATION ADMINISTERED. NO FURTHER NEEDS. CALL LIGHT IN REACH.
--- NOTE | 2024-07-20 07:08 | NUR ---
REPORT RECEIVED FROM MOTOR VEHICLE LICENCE EXAMINER RN BRAN. PATIENT IS LYING IN BED WITH HOB ELEVATED WITH EYES CLOSED AND RESPIRATIONS ARE EVEN AND UNLABORED. PATIENT IS IN THE ROOM AT THIS. CALL LIGHT AND PERSONAL BELONGINGS ARE WITHIN REACH.
--- NOTE | 2024-07-20 08:52 | NUR ---
0900 MEDICATIONS ADMINISTERED PER THE EMAR. RIGHT UPPER FOREARM IV FLUSHED FLUSHED AND THE DRESSING IS CLEAN, DRY, AND INTACT. LR IS RUNNING AT 75 ML/HR IN THE RIGHT LOWER FOREARM. LEVAQUIN IS INFUSING IN THE RIGHT UPPER FOREARM. PATIENT IS IN THE ROOM. BREAKFAST TRAY IS AT THE BEDSIDE. PATIENT EDUCATED ON WALKING IN 30 MINUTES. PATIENT EXPRESSED UNDERSTANDING. PATIENT AND FAMILY STATED NO FURTHER NEEDS AT THIS TIME. CALL LIGHT AND PERSONAL BELONGINGS ARE WITHIN REACH.
[2024-07-20] MEDS ORDERED: HYDROmorphone HCL 2 MG TAB PO PRN (09:30)
[2024-07-20] MEDS ORDERED: ACETAMINOPHEN 500 MG TAB PO PRN (09:30)
--- NOTE | 2024-07-20 09:30 | NUR ---
PATIENT IS SITTING UPRIGHT IN BED WITH HOB ELEVATED. PATIENT IS IN THE ROOM. FULL ASSESSMENT COMPLETE. PATIENT IS ALERT AND ORIENTED TIMES FOUR. PATIENT IS ON ROOM AIR WITH NO COMPLAINTS OF SHORTNESS OF BREATH. UPPER LUNG DEE ARE CLEAR BILATERALLY AND ARE DIMINISHED IN THE LOWER LUNG DEE BILATERALLY. CARDIAC WITH NORMAL S1 AND S2 ON AUSCULTATION. RADIAL AND PEDAL PULSES ARE STRONG BILATERALLY. CAPILLARY REFILL IN THE UPPER AND LOWER EXTREMITIES IS LESS THAN 3 SECONDS BILATERALLY. PATIENT IS ON A FULL LIQUID DIET AND HIS LAST BM WAS 07/19/24. BOWEL TONES ARE ACTIVE IN ALL FOUR QUADRANTS. ABDOMEN IS DISTENDED. IV IN THE RIGHT LOWER FOREARM WITH LR INFUSING AT 75 ML/HR. IV DRESSING IS CLEAN, DRY, AND INTACT. IV IN THE RIGHT UPPER FOREARM FLUSHED WITH 10 ML NORMAL SALINE AND IS SALINE LOCKED. MIDLINE ABDOMEN WITH WOUND VAC IN PLACE. SEROSANGUINOUS DRAINAGE NOTED IN THE WOUND VAC CANISTER. RLQ WITH HORACE DRAIN IN PLACE. PAIN RATED A 4/10 PRIOR TO WALK IN THE ABDOMEN. PATIENT AMBULATED 2 LAPS ON THE MEDICAL SURGICAL FLOOR. AFTER WALK PATIENT RATED PAIN 6/10 IN THE ABDOMEN. PATIENT IS NOT REQUESTING ANYTHING FOR PAIN AT THIS TIME. PATIENT IS BACK IN THE ROOM AND REPOSITIONED IN BED. PATIENT STATED NO FURTHER NEEDS AT THIS TIME. CALL LIGHT AND PERSONAL BELONGINGS ARE WITHIN REACH.
--- NOTE | 2024-07-20 10:06 | NUR ---
LEVAQUIN INFUSION COMPLETE. IV IN THE RIGHT UPPER FOREARM FLUSHED WITH 10 ML NORMAL SALINE AND IS SALINE LOCKED. PATIENT GIVEN ICE CHIPS AND A FRESH CUP OF ICE WATER. PATIENT STATED NO FURTHER NEEDS AT THIS TIME. PATIENT IS IN THE ROOM. CALL LIGHT AND PERSONAL BELONGINGS ARE WITHIN REACH.
--- NOTE | 2024-07-20 11:35 | NUR ---
PATIENT IS SITTING UPRIGHT IN BED WITH HIS SITTING IN THE CHAIR AT BEDSIDE. PATIENT STATED NO NEEDS AT THIS TIME. CALL LIGHT AND PERSONAL BELONGINGS ARE WITHIN REACH.
--- NOTE | 2024-07-20 12:27 | NUR ---
PATIENT IS SITTING UPRIGHT IN BED WITH HIS HELPING GET HIM SET UP FOR LUNCH. PATIENT STATED PAIN IS A 5/10 AT THE MIDLINE ABDOMEN. PATIENT IS NOT REQUESTING ANYTHING FOR PAIN. PATIENT WITH LUNCH TRAY. PATIENT AND FAMILY STATED NO FURTHER NEEDS AT THIS TIME. CALL LIGHT AND PERSONAL BELONGINGS ARE WITHIN REACH.
--- NOTE | 2024-07-20 14:14 | NUR ---
PATIENT IS AMBULATING IN THE HALLWAY WITH SOLO FAROOQ.
--- NOTE | 2024-07-20 14:45 | NUR ---
FOCUSED ASSESSMENT COMPLETE. BOTH IV FLUSHED WITH 10 ML NORMAL SALINE. IV IN THE RIGHT UPPER FOREARM IS SALINE LOCKED AND THE DRESSING IS CLEAN, DRY, AND INTACT. IV IN THE R LOWER FOREARM FLUSHED WITH 10 ML NORMAL SALINE AND HAS LR INFUSING AT 75 ML/HR. IV DRESSING IS CLEAN, DRY, AND INTACT. HORACE RLQ DRESSING BUNCHED UP AND PATIENT STATES "PUTTING ON THE STITCHES". SOLO MOMIN AND THIS RN CHANGED DRESSING AND APPLIED NEW GAUZE AND TAPE. PATIENT STATES "FEELS BETTER" AFTER DRESSING CHANGED COMPLETE. WOUND VAC IN PLACE WITH SUCTION SET AT 120 MMHR. PATIENT STATED PAIN IS 7/10 AFTER RECEIVING PO DILAUDID AND PO TYLENOL. PATIENT ABDOMEN REMAINS WITH MILD DISTENTION. BOWEL TONES ARE ACTIVE IN ALL FOUR QUADRANTS. PATIENT IS IN THE ROOM. PATIENT GIVEN ICE CHIPS PER REQUEST. PATIENT STATED NO FURTHER NEEDS AT THIS TIME. CALL LIGHT AND PERSONAL BELONGINGS ARE WITHIN REACH. MD NOTIFIED OF PATIENT PAIN AND DRESSING CHANGE DONE. MD GAVE RN TELEPHONE ORDER FOR IV DILAUDID Q30 MINUTES PRN FOR PAIN AT 0.5-1 MG. NO FURTHER ORDERS AT THIS TIME. CALL ENDED.
[2024-07-20] MEDS ORDERED: HYDROmorphone HCL 1 MG/ML SYR IV PRN (15:00)
--- NOTE | 2024-07-20 16:54 | NUR ---
PATIENT AMBULATED ON THE [facility] FLOOR AND TO THE WINDOWS IN THE HALLWAY. PATIENT TOLERATED WELL. PATIENT RATED PAIN 5/10 IN THE ABDOMEN AND IS NOT REQUESTING ANY PAIN MEDICATION AT THIS TIME. PATIENT IS NOW LYING BACK IN BED AFTER AMBULATING. PATIENT STATED NO FURTHER NEEDS AT THIS TIME. CALL LIGHT AND PERSONAL BELONGINGS ARE WITHIN REACH.
--- NOTE | 2024-07-20 18:36 | NUR ---
PATIENT WALKED A FULL LAP ON THE MEDICAL SURGICAL FLOOR. PATIENT ALSO WALKED TO THE CHAPEL AND BACK. PATIENT IS REQUESTING PAIN MEDICATION AFTER HIS WALK. PATIENT IS SITTING ON THE TOILET AND INSTRUCTED TO CALL WHEN FINISHED. PATIENT EXPRESSED UNDERSTANDING. CALL LIGHT IN REACH.
--- NOTE | 2024-07-20 18:50 | NUR ---
PATIENT IS SITTING UPRIGHT IN BED AFTER USING THE BATHROOM. PRN PAIN MEDICATION ADMINISTERED FOR PAIN RATED 7/10 AT THE MIDLINE ABDOMEN. IV FLUSHED WITH 10 ML NORMAL SALINE IN THE RIGHT UPPER ARM. IV IS SALINE LOCKED AND DRESSING IS CLEAN, DRY, AND INTACT. PATIENT GIVEN FRESH CUP OF ICE CHIPS AND ICE WATER. PATIENT STATED NO FURTHER NEEDS AT THIS TIME. CALL LIGHT AND PERSONAL BELONGINGS ARE WITHIN REACH.
--- NOTE | 2024-07-20 19:20 | NUR ---
RECIEVED REPORT FROM JACKIE RN. PATIENT AWAKE IN BED. PATIENT DENIES NEEDS AT THIS TIME. CALL LIGHT IN REACH.
[2024-07-20] MEDS ORDERED: FAMOTIDINE 20 MG TAB PO SCH (21:00)
--- NOTE | 2024-07-20 21:33 | NUR ---
IN ROOM TO ASSESS PATIENT. ASSESSMENT COMPLETED. MEDICATIONS ADMINISTERED, SEE E-MAR. PATIENT ICE CHIPS REFILLED. PATIENT DENIES ADDITIONAL NEEDS AT THIS TIME. CALL LIGHT IN REACH.
--- NOTE | 2024-07-20 21:36 | NUR ---
PT AWAKE IN BED. VS AND I&O OBTAINED. BP ELEVATED. PT REPORTS ABD PAIN 01/28. PRIMARY RN NOTIFIED. UP TO BR WITH SBA TO VOID AND HAVE SMALL LIQUID BM. GAIT STEADY. BACK TO BED, JOELLE WELL. LEFT QUADRANT HORACE EMPTIED WITH 5 ML SEROSANG DRAINAGE. ICE CHIPS PROVIDED PER REQUEST.
--- NOTE | 2024-07-20 22:19 | NUR ---
CALL LIGHT ANSWERED. PT UP TO BR WITH SBA TO VOID AND HAVE LIQUID BM. BACK TO BED, JOELLE WELL. OFFERED TO AMB IN SUE WITH PT. PT DECLINES AT THIS TIME DUE TO 8/10 ABD PAIN. ICE PACK OFFERED, PT REFUSES. PRIMARY RN NOTIFIED.
--- NOTE | 2024-07-20 23:05 | NUR ---
IN ROOM RESPONDING TO CALL LIGHT, PATIENT REQUESTING TO WALK. PATIENT AMBULATED ONE LAP AROUND THE UNIT USING FWW WITHOUT DIFFICULTY. PATIENT BACK IN BED AFTER WALK. ICE CHIPS REFILLED. PATIENT DENIES ADDITIONAL NEEDS AT THIS TIME. CALL LIGHT IN REACH.
[2024-07-21] VITALS (11 sets, daily range): BP systolic 145–170; BP diastolic 79–101
--- NOTE | 2024-07-21 01:47 | NUR ---
IN ROOM TO ROUND ON PATIENT. PATIENT RESTING ON BACK IN BED WITH EYES CLOSED. RESPIRATIONS EVEN AND UNLABORED. NO NEEDS IDENTIFIED AT THIS TIME. CALL LIGHT IN REACH. FAMILY AT BEDSIDE.
--- NOTE | 2024-07-21 02:51 | NUR ---
IN ROOM RESPONDING TO CALL LIGHT, PATIENT REPORTING 7/10 PAIN. PRN TYLENOL ADMINISTERED, SEE E-MAR. PATIENT DENIES ADDITIONAL NEEDS AT THIS TIME. CALL LIGHT IN REACH. FAMILY AT BEDSIDE.
--- NOTE | 2024-07-21 03:25 | NUR ---
IN ROOM RESPONDING TO CALL LIGHT, PATIENT REPORTING PAIN AT 8/10. PRN ORAL DILAUDED ADMINSITERED, SEE E-MAR. PATIENT REQUESTS NEW URINAL, URINAL PROVIDED. PATIENT DENIES ADDITIONAL NEEDS AT THIS TIME. CALL LIGHT IN REACH. FAMILY AT THE BEDSIDE.
--- NOTE | 2024-07-21 04:35 | NUR ---
IN ROOM TO ROUND ON PATIENT. PATIENT RESTING IN BED ON BACK WITH EYES CLOSED. RESPIRATIONS EVEN AND UNLABORED. NO NEEDS IDENTIFIED AT THIS TIME. CALL LIGHT IN REACH. FAMILY AT BEDSIDE.
--- NOTE | 2024-07-21 06:47 | NUR ---
IN ROOM TO ROUND ON PATIENT. VITALS ASSESSED. PATIENT ABLE TO USE URINAL TO VOID WITHOUT DIFFICULTY. PATIENT DENIES ADDITIONAL NEEDS AT THIS TIME. CALL LIGHT IN REACH.
--- NOTE | 2024-07-21 07:10 | NUR ---
REPORT RECEIVED FROM LOG TURNER RN SOLO BOSS AND SOLO CRAWLEY. PATIENT IS LYING IN BED WITH EYES CLOSED AND RESPIRATIONS ARE EVEN AND UNLABORED. PATIENT IS LYING ON THE COUCH. CALL LIGHT AND PERSONAL BELONGINGS ARE WITHIN REACH.
--- NOTE | 2024-07-21 08:24 | NUR ---
PATIENT IS SITTING UPRIGHT IN BED AND EATING BREAKFAST. PATIENT IS ON THE COUCH. CALL LIGHT AND PERSONAL BELONGINGS ARE WITHIN REACH.
--- NOTE | 2024-07-21 10:00 | NUR ---
PRN TYLENOL AND IV DILAUDID ADMINISTERED PER THE EMAR. FULL ASSESSMENT COMPLETE AND DOCUMENTED IN THE CHART. PATIENT IS ALERT AND ORIENTED TIMES FOUR. PATIENT IS IN THE ROOM THROUGHOUT THE PATIENT INTERACTION. PATIENT RATED PAIN 9/10 AT THE MIDLINE INCISION. PATIENT IS ON ROOM AIR AND LUNG SOUNDS ARE CLEAR BILATERALLY. PATIENT WITH THE IS AT BEDSIDE. CARDIAC WITH NORMAL S1 AND S2 ON AUSCULTATION. RADIAL AND PEDAL PULSES ARE STRONG BILATERALLY. PATIENT WITH A RLQ HORACE DRAIN WITH THE DRESSING CLEAN, DRY, AND INTACT. HORACE DRAINANGE IS SEROSANGUINOUS. MIDLINE WOUND VAC WITH IS INTACT WITH SEROSANGUINOUS DRAINAGE NOTED IN THE COLLECTION CANISTER. PATIENT IS ON A FULL LIQUID WITH BOWEL TONES ARE ACTIVE IN ALL FOUR QUADRANTS. LAST BM WAS 07/21/24. PATIENT WITH NO COMPLAINTS OF NAUSEA OR VOMITING. SENSATION INTACT WITH NO COMPLAINTS OF NUMBNESS OR TINGLING. IV IN THE R WRIST/FOREARM FLUSHED WITH 10 ML NORMAL SALINE AND LR IS INFUSING AT 75 ML/HR. IV DRESSING IS CLEAN, DRY, AND INTACT. IV IN THE R UPPER FOREARM FLUSHED WITH 10 ML NORMAL SALINE AND IS SALINE LOCKED. IV DRESSING IS CLEAN, DRY, AND INTACT. SCATTERED SCARS AND SCATTERED BRUISING NOTED. PATIENT STATED NO FURTHER NEEDS AT THIS TIME, CALL LIGHT AND PERSONAL BELONGINGS ARE WITHIN REACH.
--- NOTE | 2024-07-21 11:05 | NUR ---
PATIENT IS SITTING UPRIGHT IN BED WITH EYES OPEN AND RESPIRATIONS ARE EVEN AND UNLABORED. PATIENT IS IN THE ROOM. CALL LIGHT AND PERSONAL BELONGINGS ARE WITHIN REACH.
--- NOTE | 2024-07-21 11:45 | NUR ---
PRN PO DILAUDID ADMINISTERED PER THE EMAR. IV SITE IN THE R WRIST/FOREARM FLUSHED WITH 10 ML NORMAL SALINE AND IS SALINE LOCKED. IV DRESSING IS CLEAN, DRY, AND INTACT. PATIENT IS IN THE ROOM. PATIENT GIVEN A LOW FIBER DIET MENU BY GERBER FAROOQ. PATIENT STATED NO FURTHER NEEDS AT THIS TIME. CALL LIGHT AND PERSONAL BELONGINGS ARE WITHIN REACH.
--- NOTE | 2024-07-21 12:40 | NUR ---
PATIENT IS SITTING UPRIGHT IN BED AND EATING LUNCH. PATIENT IS IN THE ROOM AT THIS TIME. CALL LIGHT AND PERSONAL BELONGINGS ARE WITHIN REACH.
--- NOTE | 2024-07-21 13:35 | NUR ---
THIS RN IN TO ASK PT TO AMBULATE SUE. PT AGREEABLE. NON-SKID SOCKS PLACED TO BILATERAL FEET. PT USES FWW. PT AND THIS RN AMBULATE SUE X1 LAP. PT REPORTING TOILETING NEEDS. SBA WITH FWW TO RESTROOM IN PTs ROOM. PT NOTED TO VOID, UNMEASURED. SBA WITH FWW BACK TO BED. PT REPORTING "SEWLLING" TO BILATERAL LOWER EXTREMITIES. BLE ELEVATED IN BED WITH PILLOW. PT LAYING IN BED. PT REQUESTING ICE, ICE PROVIDED. PT DENIES ANY OTHER NEEDS AT THIS TIME. CALL LIGHT IN REACH. PTs IN RECLINER.
--- NOTE | 2024-07-21 14:17 | NUR ---
PATIENT IS LYING IN BED WITH HOB ELEVATED. PATIENT WITH EYES CLOSED AND RESPIRATIONS ARE EVEN AND UNLABORED. CALL LIGHT AND PERSONAL BELONGINGS ARE WITHIN REACH. PATIENT LEFT THE ROOM AT THIS TIME.
--- NOTE | 2024-07-21 15:04 | NUR ---
PATIENT IS LYING IN BED WITH EYES CLOSED AND RESPIRATIONS ARE EVEN AND UNLABORED. HOB IS ELEVATED. CALL LIGHT AND PERSONAL BELONGINGS ARE WITHIN REACH.
--- NOTE | 2024-07-21 16:10 | NUR ---
PATIENT IS AMBULATING IN THE HALLWAY WITH HIS AT THIS TIME WITH FWW. PATIENT TOLERATING WELL.
--- NOTE | 2024-07-21 16:39 | NUR ---
PATIENT IS LYING IN BED WITH HOB ELEVATED. PATIENT STATES PAIN IS A 7/10 AFTER AMBULATING IN THE HALLWAY INDEPENDENTLY WITH HIS . PATIENT IS REQUESTING PAIN MEDICATION AT THIS TIME. BOWEL TONES ARE ACTIVE IN ALL FOUR QUADRANTS. PATIENT IS ON A LOW FIBER DIET AND HIS LAST BM WAS 07/21/24. BOWEL TONES ARE ACTIVE IN ALL FOUR QUADRANTS. PATIENT WITH NO COMPLAINTS OF NAUSEA OR VOMITING. HORACE DRAIN DUMPED OF 5 ML SEROSANGUINOUS DRAINAGE. WOUND VAC INTACT WITH SEROSANGUINOUS DRAINAGE IN THE COLLECTION CANISTER. IV SITES REMAIN SALINE LOCKED. SCD'S IN PLACE. PATIENT STATED NO FURTHER NEEDS AT THIS TIME. CALL LIGHT AND PERSONAL BELONGINGS ARE WITHIN REACH.
--- NOTE | 2024-07-21 17:02 | NUR ---
PATIENT IS SITTING UPRIGHT IN BED WITH HIS SITTING IN THE CHAIR AT BEDSIDE. PRN TYLENOL AND IV DILAUDID ADMINISTERED AT THIS TIME. FRESH CUP OF ICE WATER GIVEN TO THE PATIENT AND HIS . IV SIGNS TAKEN AND DOCUMENTED IN THE CHART. PATIENT STATED NO FURTHER NEEDS AT THIS TIME. CALL LIGHT AND PERSONAL BELONGINGS ARE WITHIN REACH.
--- NOTE | 2024-07-21 18:17 | NUR ---
PATIENT IS AMBULATING IN THE HALLWAY INDEPENDENTLY WITH HIS . PATIENT IS TOLERATING WELL.
--- NOTE | 2024-07-21 19:24 | NUR ---
RECIEVED REPORT FROM JACKIE RN. PATIENT AWAKE IN BED WATCHING TV. PATIENT RATES PAIN AT 7/10. PATIENT DENIES NEEDS AT THIS TIME. CALL LIGHT IN REACH. FAMILY AT THE BEDSIDE.
--- NOTE | 2024-07-21 20:32 | NUR ---
PT REPORTS ABD PAIN 03/30. PRN FOR PAIN ADMIN PER EMAR. VS AND I&O OBTAINED. SCANT AMOUNT SEROSANGE DRAINAGE IN LEFT QUADRANT HORACE. NO FURTHER NEEDS. CALL LIGHT IN REACH.
--- NOTE | 2024-07-21 21:36 | NUR ---
IN ROOM TO ASSESS PATIENT. ASSESSMENT COMPLETED. PATIENT REPORTS PAIN IS BETTER AND RATES IT 7/10 WITH CRAMPING. PATIENT DENIES ADDITIONAL NEEDS AT THIS TIME. SCDs IN PLACE. CALL LIGHT IN REACH. FAMILY AT BEDSIDE.
--- NOTE | 2024-07-21 22:12 | NUR ---
CALL LIGHT ANSWERED. PT UP TO BR WITH MINIMAL SBA TO VOID AND HAVE SEMI LIQUID FORMED BM. BACK TO BED, JOELLE WELL. SCD'S IN PLACE. NO FURTHER NEEDS.
--- NOTE | 2024-07-21 22:56 | NUR ---
IN ROOM TO ROUND ON PATIENT. PATIENT REPORTING 8/10 PAIN. PRN TYLENOL ADMINISTERED, SEE E-MAR. WATER REFILLED. PROVIDED PATIENT EDUCATION ON THE GOAL OF CONTROLLING PAIN WITH ORAL PAIN MEDICATIONS VS IV IN PREPARATION FOR WHEN THE PATIENT IS ABLE TO DISCHARGE. PATIENT VERBALIZED UNDERSTANDING. DISCUSSED AMBULATING AGAIN THIS EVENING WITH PATIENT. PATIENT STATED "IF THE PAIN GETS BETTER.". PATIENT DENIES ADDITIONAL NEEDS AT THIS TIME. CALL LIGHT IN REACH. FAMILY AT THE BEDSIDE.
[2024-07-22] VITALS (10 sets, daily range): BP systolic 134–160; BP diastolic 80–92
--- NOTE | 2024-07-22 00:22 | NUR ---
IN ROOM TO ROUND ON PATIENT. PATIENT REPORTING PAIN AT 9/10. PATIENT REQUESTING TO USE THE BATHROOM. PATIENT SBA WITH FWW TO BATHROOM. ABLE TO VOID WITHOUT DIFFICULTY. PATIENT RETURNED TO BED SBA WITH FWW. PRN PAIN MEDICATION ADMINISTERED, SEE E-MAR. PATIENT DENIES ADDITIONAL NEEDS AT THIS TIME. SCDs IN PLACE. CALL LIGHT IN REACH. FAMILY AT THE BEDSIDE.
--- NOTE | 2024-07-22 02:05 | NUR ---
IN ROOM TO ROUND ON PATIENT. REASSESSED PATIENT'S PAIN. PATIENT REPORTING PAIN AT 6/10. PATIENT DENIES ADDITIONAL NEEDS AT THIS TIME. CALL LIGHT IN REACH. SCDs IN PLACE. FAMILY AT THE BEDSIDE.
--- NOTE | 2024-07-22 02:45 | NUR ---
IN ROOM TO ASSESS PATIENT'S PAIN. PATIENT REPORTING PAIN 6/10. PRN PAIN MEDICATION ADMINISTERED, SEE E-MAR. WATER REFILLED. PATIENT DENIES ADDITIONAL NEEDS AT THIS TIME. SCDs IN PLACE. CALL LIGHT IN REACH. FAMILY AT THE BEDSIDE.
--- NOTE | 2024-07-22 04:34 | NUR ---
IN ROOM TO ROUND ON PATIENT. PATIENT RESTING IN BED ON BACK WITH EYES CLOSED. AWAKENS EASILY TO VOICE. VITALS COMPLETED. PATIENT UP TO THE BATHROOM SBA WITH FWW. PATIENT ABLE TO VOID WITHOUT DIFFICULTY. PATIENT REPORTING PAIN /10. PRN TYLENOL ADMINISTERED, SEE E-MAR. PATIENT DENIES ADDITIONAL NEEDS AT THIS TIME. SCDs IN PLACE. CALL LIGHT IN REACH. FAMILY AT THE BEDSIDE.
[2024-07-22 05:37] LABS: BASOPHILS 0.9 % (0-2); EOSINOPHILS 6.2 % (0-6); HEMATOCRIT 26.1 % (35.0-50.0); HEMOGLOBIN 8.6 g/dL (12.0-18.0); LYMPHOCYTES 13.7 % (24-44); MCH 27.6 (27-36); MCHC 32.9 g/dl (30-36); MONOCYTES 8.1 % (0-12); NEUTROPHILS 71.1 % (39-80); PLATELET COUNT 389 K/uL (140-440); RBC 3.11 M/ul (4.3-5.7); RDW 15.5 (10.5-15.0)
[2024-07-22 05:58] LABS: ALBUMIN 2.2 g/dL (3.4-5.0); ALBUMIN/GLOBULIN RATIO 0.67 (1.1-2.4); BILIRUBIN, TOTAL 0.2 ng/dL (0.2-1.0); CREATININE, SERUM 0.8 mg/dL (0.70-1.30); PROTEIN, TOTAL 5.5 g/dL (6.4-8.2)
--- NOTE | 2024-07-22 07:44 | NUR ---
PT RESTING EYES CLOSED AT TIME OF SHIFT REPORT PRESENT IN THE ROOM. LEFT UNDISTURBED. PT AWAKE NOW AND UP TO THE TOILET, AGREES HE SLEPT WELL. FRESH H20 TO BEDSIDE OTHER NEEDS DENIED
--- NOTE | 2024-07-22 09:28 | NUR ---
PT TO THE RECLINER AFTER TOILETING EARLIER IN THE SHIFT. EATS A MODERATE AMOUNT OF BREAKFAST THEN AMBULATES SEVERAL LAPS IN THE SUE WITH HIS . PT RETURNS TO REST IN BED C/O ABDOMINAL PAIN. MEDICATED. PT RESTING NOW EYES CLOSED
--- NOTE | 2024-07-22 10:42 | NUR ---
DR CARRASCO IN TO SEE PT BRIEFLY EARLY THIS SHIFT HE WILL BE BACK LATER. PT DENIES CONCERNS OR QUESTIONS
--- NOTE | 2024-07-22 11:03 | NUR ---
PATIENT TOLD ME HE WALKED ONE LAP AROUND MED SURG WITH HIS THIS MORNING.
--- NOTE | 2024-07-22 11:24 | NUR ---
PT RESTING EYES CLOSED AT BEDSIDE
--- NOTE | 2024-07-22 13:11 | NUR ---
PT AMBULATES THE SUE THEN SITS UP IN THE CHAIR. STATES HE WILL NEED PAIN MEDICATION FOR DRESSING CHANGE TODAY, AGREED. HE IS UP INDEPENDANTLY TO THE TOILET STEADY ON HIS FEET. ATE 1/2 OF HIS NOON MEAL WELL TOLERATED WITH NO C/O INCREASED PAIN. PT HAS HAD SEVERAL SMALL STOOLS THIS SHIFT GOING FROM LIQUID TO PARTIALLY FORMED.
--- NOTE | 2024-07-22 13:52 | NUR ---
VISITED DURING SPIRITUAL CARE ROUNDS. PT IN OVERALL GOOD SPIRITS, SUPPORTED BY EXTENSIVE FAMILY IN ROOM. REQUESTED MEMBERSHIP CORRESPONDENT VISIT TOMORROW. METAL PRECISION MACHINE ASSEMBLER PROVIDED SUPPORTIVE PRESENCE, HOSPITALITY, PRAYER, FACILITATED INTERACTION WITH THERAPY ANIMAL. WILL NOTIFY MEMBERSHIP CORRESPONDENT OF REQUESTED VISIT.
--- NOTE | 2024-07-22 14:12 | NUR ---
PT RESTING IN BED FAMILY PRESENT X4 HE DENIES NEEDS AT THIS TIME. WOUND VAC WAS ALARMING FOR OCCLUDED LINE. TUBING REPOSITIONED ALARM CLEARED
--- NOTE | 2024-07-22 16:20 | NUR ---
PT UP TO THE TOILET SBA LINE MANAGEMENT. AGREES PAIN IS WELL CONTROLLED THIS SHIFT. FAMILY REMAIN PRESENT THIS SHIFT
--- NOTE | 2024-07-22 17:06 | PATH ---
[facility] [address], [place] [address] Signed SPECIMEN(S): A PROXIMAL SMALL BOWEL SPECIMEN(S): B SEGMENT OF ILEUM SPECIMEN SOURCE: A. PROXIMAL SMALL BOWEL B. SEGMENT OF ILEUM CLINICAL HISTORY: Rule out granulomatous enteritis, please do birefringent exam FINAL PATHOLOGIC DIAGNOSIS: A. Proximal small bowel, segmental resection: - Unremarkable small bowel mucosa, negative for inflammation, atypia or malignancy. - Viable staple line margins with focal areas of serosal inflammation (serositis) with suture material identified and surrounding foreign body histiocytic reaction. - Negative for granulomas B. Segment of ileum: - Unremarkable small intestinal mucosa and surrounding muscular layers, negative for inflammation, atypia or malignancy. - Serosal adhesions with areas of histiocytic fibroblastic reaction. - Negative for granulomas. NA MICROSCOPIC EXAMINATION: Histologic sections of all submitted blocks are examined by light microscopy. These findings, together with the gross examination, support the pathologic diagnosis. GROSS DESCRIPTION: A. The specimen, labeled and designated "Coy Mercer, proximal small bowel," is received in formalin and consists of 3 pieces of small bowel, 2 of which are remarkable for staple and margins and sutures. The largest segment of bowel measures 13 cm in length x 3.5 cm in average diameter and demonstrates a [id number] line of anastomosis which measures 6.5 cm in length. The associated serosa is hemorrhagic and with adhesions. The mucosa of the segment is slightly heaped up and edematous, but unremarkable for any distinct masses. The smaller segment of bowel is also received stapled and measures 4 cm in length x 3 cm in diameter. Fully opening this piece PATIENT NAME: EKATERINA BLANTON PATHOLOGY DATE OF : 62 REPORT #: [id number] PHYSICIAN: VITA PATHOLOGY PCP: SYMONE JOSEPH MD REPORT IS CONFIDENTIAL AND NOT TO BE RELEASED WITHOUT AUTHORIZATION [facility] [address], [place] [address] Signed demonstrates an unremarkable, folded mucosa. Received separately from the two pieces just described is a 5 x 3.8 x 2.5 cm segment of grossly necrotic fat and soft tissue. Sectioning demonstrates small foci of discolored, green-yellow components. No normal bowel is present within the segment. No rob are seen or palpated. Grocery Shopper sections are submitted in A1-A5: Cassette Summary: (A1) stapled margins of larger segment, both en face (A2) line of anastomosis from larger segment, to include area of greatest edema (A3) staple margins from smaller piece, both en face (A4-A5) discolored and friable separate tissue B. The specimen, labeled and designated "Coy Mercer, segment of ileum," is received in formalin and consists of a torturous segment of small bowel that is received in a kinked state. The specimen is received without orientation and stapled at both ends. It measures 35 cm in length x 1.5-3.5 cm in diameter. The bowel is remarkable for diffuse stricturing along its entire length along with points of adherence to itself. At some of these points or staple lines embedded within the bowel wall. The mucosa is heaped up, discolored, but unremarkable for any distinct masses. Grocery Shopper sections are submitted in B1-B5. Cassette Summary: (B1-B2) both staple and margins, each en face (B3-B5) separate areas of serosal adherence, anastomotic lines, and structuring AM (under the direct supervision of a pathologist) The Gross Description was prepared using a voice recognition system. The report was reviewed for accuracy; however, sound-alike word errors, addition and/or deletions may occur. If there is any question about this report, please contact Client Services. ADDITIONAL NOTES: Immunohistochemical and/or in situ hybridization studies if performed in this case included appropriate positive controls that reacted as expected. This test was developed and its performance characteristics determined by [facility]. It has not been cleared or approved by the U.S. Food and Drug Administration. The FDA has determined that such clearance or approval is not necessary. This test is used for clinical purposes. It should not be regarded PATIENT NAME: EKATERINA BLANTON PATHOLOGY DATE OF : 62 REPORT #: [id number] PHYSICIAN: VITA KAISER PCP: SYMONE JOSEPH MD REPORT IS CONFIDENTIAL AND NOT TO BE RELEASED WITHOUT AUTHORIZATION [facility] [address] [place] [id number] Signed as investigational or for research. [facility] is certified under the Clinical Laboratory Improvement Amendments of 1988 (CLIA) as qualified to perform high complexity clinical laboratory testing. PERFORMING LABORATORY: Technical component was performed by [facility], [address] [place] [id number] (CLIA# [id number]). Professional interpretation was performed by [facility], [address] [place] [id number] (CLIA#: [id number]). Diagnostician: Caesar Goodman MD Pathologist Electronically Signed 07/22/2024 Copies: ~ PATIENT NAME: EKATERINA BLANTON PATHOLOGY DATE OF : 62 REPORT #: [id number] PHYSICIAN: VITA PATHOLOGY PCP: SYMONE JOSEPH MD REPORT IS CONFIDENTIAL AND NOT TO BE RELEASED WITHOUT AUTHORIZATION
--- NOTE | 2024-07-22 17:55 | NUR ---
PT SITTING IN BED EATING EVENING MEAL DENIES NEEDS
[2024-07-22] MEDS ORDERED: MAGNESIUM SULFATE 2 GM/50 ML BAG IV ONE (18:30)
[2024-07-22] MEDS ORDERED: POTASSIUM CHLORIDE 40 MEQ,LIDOCAINE HCL 1% 40 MG in DEXTROSE 5% 250 ML IV ONE (18:30)
--- NOTE | 2024-07-22 18:35 | NUR ---
APRESOLINE ADMINISTERED FOR ELEVATED BP. DR CARRASCO IN TO SEE PT DRESSING PULLED REAPPLIED BY THIS AIRPORT CLERK PER DR CARRASCO INSTRUCTION. PROCEDURE WELL TOLERATED. PT RESTING IN BED NOW FAMILY PRESENT
--- NOTE | 2024-07-22 19:39 | NUR ---
REPORT RECEIVED FROM DAY SHIFT RN. PT LYING IN BED ALERT AND ORIENTED. DENIES NEEDS. WHITE BOARD UPDATED. CALL LIGHT IN REACH.
--- NOTE | 2024-07-22 20:21 | NUR ---
EVENING ASSESSMENT COMPLETE. SCHEDULED MEDS ADMIN PER EMAR. PT REPORTS ABD PAIN 5/10. PRN FOR PAIN ADMIN PER EMAR. PT DENIES NAUSEA. UP TO BR TO VOID WITH MINIMAL SBA. GAIT STEADY. BACK TO BED. HORACE RLQ WITH SCANT AMOUNT SEROUS DRAINAGE. WOUNDVAC IN PLACE. ABD SOFT AND TENDER. BOWEL TONES ACTIVE. VS AND I&O OBTAINED. PT DENIES QUESTIONS OR CONCERNS. CALL LIGHT IN REACH.
--- NOTE | 2024-07-22 21:26 | NUR ---
PT REPORTING INCREASED ABD PAIN /. PRN FOR PAIN ADMIN PER EMAR. NO FURTHER NEEDS.
--- NOTE | 2024-07-22 23:05 | NUR ---
IV PUMP ALARMING. ISSUE RESOLVED. URINAL EMPTIED. PT DENIES NEEDS. CALL LIGHT IN REACH.
--- NOTE | 2024-07-23 00:28 | NUR ---
PT RESTING IN BED WITH EYES CLOSED. RESPIRATIONS EVEN. CALL LIGHT IN REACH.
--- NOTE | 2024-07-23 01:41 | NUR ---
PT UP TO BR TO VOID. BACK TO BED, JOELLE WELL. REPORTS ABD PAIN 5/10. PRN FOR PAIN ADMIN PER EMAR. NO FURTHER NEEDS.
--- NOTE | 2024-07-23 03:08 | NUR ---
ROUNDING NOTE. PT REPORTS ABD PAIN 01/28. PRN FOR PAIN ADMIN PER EMAR. URINAL EMPTIED. ABD ASSESSMENT UNCHANGED. NO FURTHER NEEDS. CALL LIGHT IN REACH.
--- NOTE | 2024-07-23 04:48 | NUR ---
PT RESTING IN BED WITH EYES CLOSED. RESPIRATIONS EVEN. CALL LIGHT IN REACH.
[2024-07-23 05:47] LABS: ANION GAP 12.6 (7-21); BUN/CREATININE RATIO 9.45 (6.0-28.6); CREATININE, SERUM 0.74 mg/dL (0.70-1.30); MAGNESIUM 2.3 mg/dL (1.8-2.4); POTASSIUM 3.6 mmol/L (3.5-5.1)
[2024-07-23 05:58] LABS: CALCIUM 8.1 mg/dL (8.5-10.1)
[2024-07-23 06:27] VITALS: BP 140/89
--- NOTE | 2024-07-23 06:27 | NUR ---
VS AND I&O OBTAINED. SCANT AMOUNT SEROSANG DRAINAGE NOTED IN RLQ HORACE. PT DENIES NEEDS AT THIS TIME. CALL LIGHT IN REACH.
--- NOTE | 2024-07-23 07:21 | NUR ---
PT RESTING IN BED AWAKE AT TIME OF SHIFT REPORT, DENIES NEEDS OF. CALL LIGHT AT BEDSIDE FRESH H20 PROVIDED
--- NOTE | 2024-07-23 07:37 | NUR ---
PT WOUND VAC RUNNING AT 125 MM SUCTION INSTEAD OF [address] CARRASCO NOTIFIED HE STATES THIS SETTING IS FINE.
--- NOTE | 2024-07-23 08:29 | NUR ---
PATIENT IN BED AT THIS TIME. EXECUTIVE ASST WENT INTO PATIENTS ROOM FOR HOURLY ROUNDS. CALL LIGHT WITHIN REACH, NO FURTHER NEEDS AT THIS TIME.
--- NOTE | 2024-07-23 08:35 | NUR ---
PT TOLERATES MORNING MEAL NO NAUSEA OR PAIN CONTINUES TO PASS SMALL AMOUNTS OF STOOL BECOMING MORE FORMED. UP INDEPENDANLTY IN THE ROOM. REPORTS WALKING 7X YESTERDAY AND AGREES TO CONTINUE EFFORTS TODAY. DENIES ANY FURTHER NEED AT THIS TIME
--- NOTE | 2024-07-23 09:10 | NUR ---
PT AMBULATES SEVERAL LAPS IN THE SUE THEN RETURNS TO REST IN BED.
[2024-07-23 09:38] VITALS: BP 135/86
--- NOTE | 2024-07-23 10:28 | NUR ---
PATIENT IN CHAIR AT THIS TIME. SIZE MIXER CHARTED VITALS AND I&O'S AND ASSISTED PATIENT IN MOVING TO THE CHAIR. CALL LIGHT WITHIN REACH, NO FURTHER NEEDS AT THIS TIME.
--- NOTE | 2024-07-23 10:30 | NUR ---
PT AMBULATES THE HALLS AGAIN THEN RETURNS TO REST IN BED. STATES SUPINE IS MORE COMFORTABLE FOR HIM, SITTING MAKES HIS ABDOMEN UNCOMFORTABLE. FAMILY PRESENT TO VISIT.
--- NOTE | 2024-07-23 11:03 | NUR ---
PATIENT IN BED AT THIS TIME. HOGSHEAD WEIGHER ASSISTED PATIENT IN GETTING FROM CHAIR BACK TO BED. HOGSHEAD WEIGHER WENT INTO PATIENTS ROOM FOR HOURLY ROUNDS. CALL LIGHT WITHIN REACH, NO FURTHER NEEDS AT THIS TIME.
--- NOTE | 2024-07-23 11:13 | NUR ---
ORDERS, PROG NOTES, LABS FAXED TO DAY SURGERY TO SCHEDULE OUTPATIENT DRESSING CHANGES.
[2024-07-23 11:20] VITALS: BP 135/86
--- NOTE | 2024-07-23 12:27 | NUR ---
PT IS SITTING UP ON THE EDGE OF THE BED FOR NOON MEAL, FAMILY ARE PRESENT
[2024-07-23 13:14] VITALS: BP 138/78
--- NOTE | 2024-07-23 13:52 | NUR ---
PT UP AMBULATING THE SUE
--- NOTE | 2024-07-23 14:11 | NUR ---
[place] [facility] [place]DOES NOT MEET STAGE 2 DUE TO ONGOING NEED FOR WOUND CARE KASSIE HOLMAN 07/16/24 @ 1418 CLINICALS TO KASSIE FOR AUTH REVIEW. ANTICIPATE DC TODAY
[2024-07-23] MEDS ORDERED: ACETAMINOPHEN500 MG PO (14:36)
[2024-07-23] MEDS ORDERED: FAMOTIDINE20 MG PO (14:37)
[2024-07-23] MEDS ORDERED: CIPRO500 MG PO (14:37)
[2024-07-23] MEDS ORDERED: DILAUDID2 MG PO (14:38)
--- NOTE | 2024-07-23 14:47 | NUR ---
DR CARRASCO IN TO SEE PT DC WRITTEN ALL QUESTIONS ANSWERED.
--- NOTE | 2024-07-23 14:57 | NUR ---
SPOKE WITH KAYLIN IN DAY SURGERY. PATIENT SCHEDULED FOR JULY 26 AT 1300 FOR WOUND VAC CHANGE. PLACED IN DC INSTRUCTIONS. MARIO Huang RN, NOTIFIED.
--- NOTE | 2024-07-23 15:09 | NUR ---
PATIENT IN BED AT THIS TIME. PRESIDENT AND CHIEF OPERATING OFFICER CHARTED VITALS AND I&O'S. CALL LIGHT WITHIN REACH, NO FRUTHER NEEDS AT THIS TIME.
--- NOTE | 2024-07-24 12:25 | DS ---
[facility] [address] [place], [place] [address] Signed ADMISSION DATE: 07/16/2024 DISCHARGE DATE: 07/23/2024 REASON FOR ADMISSION: Recurrent enterocutaneous fistula drainage through midline incision. 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 Details can be found in the discharge summary dictated on 07/13/2024. The patient underwent a midline laparotomy and resection of fistulous tract and defect of the small bowel with end-to-end enteroenterostomy on July 09, 2024. He was discharged on 07/13/2024. The patient had been at home and instructed to shower on a daily basis which he has done. The midline incision was closed with hemoclips. He noted some egress of serous and possibly mucopurulent material early on the day of current admission and he called me at home and I recommended that he present to the emergency room since it was 9 o'clock at night. I saw him in the emergency room where he was found to have a wound infection for which the wound rob were removed. He was admitted for further evaluation and care. PERTINENT PHYSICAL EXAMINATION: GENERAL: Showed a pleasant man who does not look systemically toxic. VITAL SIGNS: Temperature is 98.7, pulse 78, blood pressure 173/95. SKIN: Midline incision showed separation of the skin with some clips. The clips were removed and in the depth of the wound was a mucopurulent subcutaneous in the wound in the midportion with no evidence of bubbles or enteric contents. The suture closing the fascia was well identified with no sign of fascial defect. Wound cultures had been obtained previously of the fistulous tract, which did show Serratia marcescens. HOSPITAL COURSE: He was admitted to the hospital, started on broad-spectrum antibiotics for a midline wound infection. The wound had been packed after evaluation with plain gauze. Following morning, he was noted to have in the depth of the wound, bilious staining of the gauze, indicative obviously of either anastomotic failure or additional enteric drainage from elsewhere within the abdominal cavity. On the evening of July 16, extending into the forming operator hours of July 17, 2024, he underwent reoperation. This included opening the midline incision. Operation Electronically Signed By: HOSSEIN CARRASCO MD 07/24/24 1225 PATIENT NAME: EKATERINA BLANTON DISCHARGE SUMMARY DATE OF : 62 REPORT #: [id number] PHYSICIAN: HOSSEIN CARRASCO MD PCP: SYMONE JEFFERS MD REPORT IS CONFIDENTIAL AND NOT TO BE RELEASED WITHOUT AUTHORIZATION [facility] [address] [place], [place] [address] Signed include exploration of the abdomen, which was prolonged and complicated and difficult with extensive lysis of adhesions. Adhesion formation at seven days was far more profound than what would be expected in most situations. Despite extensive mobilization of small bowel and previously scarred and densely adhesed bowel segments a distinct site of enteric leakage was never truly identified. There were two separate areas, one in the proximal bowel, the other in the distal bowel that were quite markedly inflamed with scar tissue, which had been present even at the previous operation that were suspicious as the only areas at risk for ongoing micro leak of enteric contents. Of special note, the most recent end to end anastomosis (which corresponded to the recently resected small bowel in continuity with the fistulous tract was found to be healing well and without signs of leakage or anastomtic failure. Ultimately, segmental small bowel resection x2 was undertaken including proximal jejunum and previous stapled anastomosis as well as the distal ileum. These were the areas most involved in severe scarring and most likely to have accounted for persistent fistula drainage. These resections left only clearly healthy and scar free bowel Two anastomoses were undertaken-- a more proximal [id number] enteroenterostomy of jejunum and a distal end-to-end hand sewn end to end anastomosis of ileum. An omental pedicle graft was applied to the anastomotic area in the upper abdomen and debridement of the right lower abdominal wall fistula site was additionally undertaken. Application of a wound VAC device was also undertaken to help stabilize the midline fascia and allow drainage of any intra abdominal fluid. A drain eleni drain was placed in the right paracolic gutter. Post operatively, he was maintained on nasogastric tube drainage for 48 hours and when bowel function returned, it was removed. Minimal oral intake was allowed until confidence and full bowel function was confirmed. He was maintained on broad spectrum antibiotics including Levaquin and Flagyl based on previous culture reports. He had bowel function and was advanced on his diet to clear liquids, full liquids and also a low-fiber mechanical soft diet. The drain showed no evidence of enteric leakage and the wound VAC device drained only scant fluid. On July 22, 2024, he underwent a change of his midline wound VAC showing excellent granulation of the base of the wound as well as the right lateral previous fistula site. The wound VAC was maintained in an abundance of caution so as to provide ongoing drainage, stabilization of the midline fascia and promotion of granulation. Electronically Signed By: HOSSEIN CARRASCO MD 07/24/24 1225 PATIENT NAME: EKATERINA BLANTON DISCHARGE SUMMARY DATE OF : 62 REPORT #: [id number] PHYSICIAN: HOSSEIN CARRASCO MD PCP: SYMONE JEFFERS MD REPORT IS CONFIDENTIAL AND NOT TO BE RELEASED WITHOUT AUTHORIZATION [facility] [address] [place], [place] [address] Signed At discharge, it is planned that he will be seen in the outpatient wound care clinic twice a week, including Mondays and at which point I will monitor his wound. I believe the wound can be closed by delayed primary intention quite promptly, perhaps within a week or so. The drain was removed prior to discharge. DISCHARGE MEDICATIONS: 1. Cipro 500 mg p.o. b.i.d. #10. 2. Dilaudid 2 mg 1-2 tabs p.o. q.8 hours as needed for severe pain #20. 3. Pepcid 20 mg p.o. b.i.d. #60 refill one. 4. Tylenol 1000 mg p.o. q.6 hours as needed for pain #60. He will continue his usual medications including tadalafil 20 mg as needed. 5. Fluticasone spray two sprays nasally for allergies. 6. Rosuvastatin 10 mg p.o. HS for cholesterol elevation. 7. Flomax 0.4 mg p.o. daily. 8. Ibuprofen 600 mg p.o. q.6 hours as needed for pain. DISCHARGE DIAGNOSES: 1. Recurrent or persistent enteric leakage intraabdominal cavity now status post exploration of wound, segmental bowel resection proximally and distally including previous anastomotic site with primary anastomosis and application of wound VAC to the midline incision and previous right mid abdominal fistulous opening site as well as omental pedicle graft. 2. Distant history of cholecystectomy with concurrent lysis of adhesions of small bowel and enteric leakage ([place], [place]) November 2023 3. Laparotomy with segmental bowel resection with resultant recurrent enteric leakage ([place], [place]). November 2023 4. December 20, 2023, severe sepsis with manifestation of tachycardia and hypotension requiring emergency exploration of abdomen, drainage of abscess, closure of fistulous opening and omental pedicle graft and placement of drain (Dr. Hossein Carrasco, [place], [place]). 5. Prolonged nutritional recovery. 6. Definitive laparotomy with segmental bowel resection and resection of fistulous tract. May 2024. 7. Recurrent enteric leakage through midline incision with associated infection, status post exploration segmental bowel resection x2 with anastomosis and application of wound VAC. 8. History of appendectomy. 9. Urinary outlet obstructive symptoms. Electronically Signed By: HOSSEIN CARRASCO MD 07/24/24 1225 PATIENT NAME: EKATERINA BLANTON DISCHARGE SUMMARY DATE OF : 62 REPORT #: [id number] PHYSICIAN: HOSSEIN CARRASCO MD PCP: SYMONE JEFFERS MD REPORT IS CONFIDENTIAL AND NOT TO BE RELEASED WITHOUT AUTHORIZATION [facility] [address] [place] [id number] Signed MD JOAN Bates/MONICA /[id number] cc: Dr. Symone Jeffers [place], [place] Copies: ~ Electronically Signed By: HOSSEIN CARRASCO MD 07/24/24 1225 PATIENT NAME: EKATERINA BLANTON DISCHARGE SUMMARY DATE OF : 62 REPORT #: [id number] PHYSICIAN: HOSSEIN CARRASCO MD PCP: SYMONE JEFFERS MD REPORT IS CONFIDENTIAL AND NOT TO BE RELEASED WITHOUT AUTHORIZATION
== END 2024-07-23 15:16 | disposition home or self-care (01) | DRG 330 ==
LOC: ED 21:22 → MS 21:24 → CCU 07-17 00:52 → MS 07-18 15:20
PROVIDERS: Internal Medicine; ADMIT Surgery; ATTEND Surgery
PROC: 0DBB0ZZ Excision of Ileum, Open Approach (ICD-10-PCS; principal; 2024-07-17)
PROC: 0DBA0ZZ Excision of Jejunum, Open Approach (ICD-10-PCS; 2024-07-17)
PROC: 0DN80ZZ Release Small Intestine, Open Approach (ICD-10-PCS; 2024-07-17)
PROC: 0DU807Z Supplement Small Intestine with Autologous Tissue Substitute, Open Approach (ICD-10-PCS; 2024-07-17)
PROC: 0JD80ZZ Extraction of Abdomen Subcutaneous Tissue and Fascia, Open Approach (ICD-10-PCS; 2024-07-17)
DX: K63.2 Fistula of intestine (principal); I96 Gangrene, not elsewhere classified; T81.41XA Infection following a procedure, superficial incisional surgical site, initial encounter; K66.0 Peritoneal adhesions (postprocedural) (postinfection); I10 Essential (primary) hypertension; N13.9 Obstructive and reflux uropathy, unspecified; Y83.8 Other surgical procedures as the cause of abnormal reaction of the patient, or of later complication, without mention of misadventure at the time of the procedure; Z90.49 Acquired absence of other specified parts of digestive tract
CPT/HCPCS: 00840; 36415; 74177; 80048; 80053; 83735; 84100; 85025; 85060; 87070; 87075; 87205; 93005; 93010; A9270; G0378; J0131; J0330; J0360; J1100; J1160; J1171; J1720; J1885; J1956; J2250; J2270; J2405; J2704; J2765; J3010; J3475; J3480; J3490; J7060; J7121; Q9967

== ENCOUNTER 2024-08-09 07:33 | Day surgery (SDC) | payer BC, OTHER ==
[~2024-08-09] VITALS: Ht 157.5 cm; Wt 65.9 kg
[~2024-08-09 07:33] MED LIST changes: +CEFAZOLIN SODIUM 2 GM/20 ML SYR IV SCH; +CIPRO500 MG PO; +IBLOOD GLUCOSE TEST STRIP 1 EA TEST VI PRN; +LACTATED RINGER'S 1,000 ML IV SCH; +LIDOCAINE HCL 1% 5 ML SDV INJ ONE; -SEVOFLURANE 250 ML BTL INH ONE
[2024-08-09 07:59] VITALS: BP 129/77
[2024-08-09] MEDS ORDERED: fentaNYL citrate 100 MCG/2 ML VIAL ONE (09:01)
[2024-08-09] MEDS ORDERED: DEXAMETHASONE SOD PHOS 4 MG/ML VIAL ONE (09:02)
[2024-08-09] MEDS ORDERED: ACETAMINOPHEN 1,000 MG/100 ML VIAL ONE (09:02)
[2024-08-09] MEDS ORDERED: KETOROLAC TROMETHAMINE 30 MG/ML VIAL ONE (09:02)
[2024-08-09] MEDS ORDERED: propofoL 200 MG/20 ML VIAL ONE (09:02)
[2024-08-09] MEDS ORDERED: ondansetron HCL 4 MG/2 ML VIAL ONE (09:02)
[2024-08-09] MEDS ORDERED: dexmedeTOMIDine HCl 200 MCG/2 ML VIAL ONE (09:08)
--- NOTE | 2024-08-09 10:09 | NUR ---
08/09/24 Jorge Cabrera 1002: PT ARRIVED TO PACU VIA BED. PT ALERT AND ORIENTED. PT ON RA AT THIS TIME. PT HAS [address] PT RAITING PAIN 5/10 IN ABDOMEN AT THIS TIME.
[2024-08-09] MEDS ORDERED: HYDROmorphone HCL 2 MG TAB PO ONE (10:30)
[2024-08-09 10:46] VITALS: BP 107/72
--- NOTE | 2024-08-13 11:54 | OR ---
[facility] [address] [place], [place] [address] Signed DATE OF OPERATION: 08/09/2024 SURGEON: Hossein Carrasco MD PREOPERATIVE DIAGNOSES: 1. History of complex enterocutaneous fistula. 2. Wound VAC midline incision and right lateral drain site 16 cm + 2 cm. POSTOPERATIVE DIAGNOSES: 1. History of complex enterocutaneous fistula. 2. Wound VAC midline incision and right lateral drain site 16 cm + 2 cm. PROCEDURE: Closure of abdominal midline wound 16 cm. Closure of right lateral abdominal wall wound 2 cm. TOBACCO SORTER: Jai Carrasco. ANESTHESIA: Intravenous sedation; Evert Harding, ORACLE DBA and local 10 mL of 0.25% Marcaine with epinephrine. INDICATION: This 63-year-old man has a complex past medical history. He is a patient of Dr. Herb Garza in [place]. I operated on the patient on December 20, 2023 for intra-abdominal abscess and profound sepsis related to an enteric defect. His initial operation was a laparoscopic cholecystectomy followed by exploration and resection of enterotomy in [place], [place]. His initial operation included repair of an enteric defect, though he had a frozen abdomen, placement of drain, omental patch and other interventions. Over the many months, he was treated with various interventions, ultimately culminated in enteric resection and resection of enteric fistula several weeks ago. A wound VAC dressing has been applied along the midline incision which is granulating well now as well as the drain site in the lateral abdominal wall. Granulation is far long enough at this point that definitive wound closure is appropriate. The risk of bleeding, infection, and other unforeseen complications. Surgery reviewed with him. He understands and wished to proceed. FINDINGS: Excellent granulation was noted in the midline incision, which measured 16 cm. The Electronically Signed By: HOSSEIN CARRASCO MD 08/13/24 1154 PATIENT NAME: EKATERINA BLANTON OPERATIVE REPORT DATE OF : 62 REPORT #: [id number] PHYSICIAN: HOSSEIN CARRASCO MD PCP: SYMONE JOSEPH MD REPORT IS CONFIDENTIAL AND NOT TO BE RELEASED WITHOUT AUTHORIZATION [facility] [address] [place], [place] [address] Signed right lateral drain site incision was 2 cm and also granulating. All were closed without problem. DESCRIPTION OF PROCEDURE: The patient was brought to the operating room, placed in the supine position, given intravenous sedation. Preoperative antibiotic Ancef was given. Sequential compression device stockings were used. The abdomen is prepared with a Betadine based solution and draped sterilely. The wound VAC had been removed prior to preparation. The wound was closed with interrupted 2-0 nylon suture dermis accurately. This included the right lateral abdominal wall drain site which was also granulating well. The wound closed in the midline was 16 cm in length abdominal wall 2 cm. Acticoat dressings were applied. He was taken to the recovery room in good condition. MD JOAN Bates/KAILEYL /[id number] cc: DO Dr. Jai Mckenzie Dr. Copies: Herb Garza DO ~ Electronically Signed By: HOSSEIN CARRASCO MD 08/13/24 1154 PATIENT NAME: EKATERINA BLANTON OPERATIVE REPORT DATE OF : 62 REPORT #: [id number] PHYSICIAN: HOSSEIN CARRASCO MD PCP: SYMONE JOSEPH MD REPORT IS CONFIDENTIAL AND NOT TO BE RELEASED WITHOUT AUTHORIZATION
== END 2024-08-09 11:00 | disposition home or self-care (01) ==
LOC: DS 07:33
PROVIDERS: ATTEND Surgery
PROC: 2W5 Placement, Anatomical Regions, Removal (ICD-10-PCS; principal; 2024-08-09 09:15)
DX: Z48.01 Encounter for change or removal of surgical wound dressing (principal); K63.2 Fistula of intestine; Z79.899 Other long term (current) drug therapy; Z90.49 Acquired absence of other specified parts of digestive tract
CPT/HCPCS: 00700; J0131; J1100; J1885; J2405; J2704; J3010; J7121

== ENCOUNTER 2025-01-20 06:59 | Day surgery (SDC) | payer BC, OTHER ==
[~2025-01-20] VITALS: Ht 157.5 cm; Wt 70.0 kg
[~2025-01-20 06:59] MED LIST changes: -CEFAZOLIN SODIUM 2 GM/20 ML SYR IV SCH; -IBLOOD GLUCOSE TEST STRIP 1 EA TEST VI PRN; -LACTATED RINGER'S 1,000 ML IV SCH; -LIDOCAINE HCL 1% 5 ML SDV INJ ONE; +MIDAZOLAM HCL 5 MG/5 ML VIAL IV PRN; +fentaNYL citrate 100 MCG/2 ML VIAL IV PRN
[2025-01-20] MEDS ORDERED: LACTATED RINGER'S 1,000 ML IV SCH (07:00)
[2025-01-20] MEDS ORDERED: LIDOCAINE HCL 1% 5 ML SDV INJ ONE (07:00)
[2025-01-20] MEDS ORDERED: IBLOOD GLUCOSE TEST STRIP 1 EA TEST VI PRN (07:00)
[2025-01-20 07:19] VITALS: BP 141/81
[2025-01-20] MEDS ORDERED: MONTELUKAST SOD10 MG PO (07:23)
[2025-01-20] MEDS ORDERED: VENTOLIN HFA18 GM INH (07:46)
[2025-01-20] MEDS ORDERED: MIDAZOLAM HCL 5 MG/5 ML VIAL ONE (08:13)
[2025-01-20] MEDS ORDERED: fentaNYL citrate 100 MCG/2 ML VIAL ONE (08:14)
--- NOTE | 2025-01-20 09:09 | NUR ---
01/20/[address] PRESENTS TO PATIENT'S BEDSIDE AND IS SPEAKING WITH PATIENT. PATIENT'S QUESTIONS ARE ANSWERED.
[2025-01-20 09:48] VITALS: BP 116/77
--- NOTE | 2025-01-22 09:58 | OR ---
[facility] [address] [place], [place] [address] Signed DATE OF OPERATION: 01/20/2025 SURGEON: Hossein Carrasco MD PREOPERATIVE DIAGNOSES: 1. Colon screening. 2. History of complex enteric fistula with successful management. POSTOPERATIVE DIAGNOSIS: Pedunculated polyp of rectosigmoid (excised). PROCEDURE: Total colonoscopy to cecum with hot snare polypectomy x1. ANESTHESIA: Intravenous sedation, fentanyl 100 mcg, Versed 6 mg. INDICATION: This 64-year-old man is a patient Dr. Symone Joseph of [place], [place]. He has a complex medical history with me having suffered an enteric leak following robotic cholecystectomy with subsequent bowel resection in [place], [place] in 2022. He is fully recovered from that, though the interventions were numerous, complex, and lengthy. He last underwent screening colonoscopy between 10 and 20 years ago. He has no current symptoms of bleeding, diarrhea or constipation and no family history of colon cancer. He is now to undergo screening colonoscopy. He understands the risk of bleeding, infection, and perforation. FINDINGS: The prep was excellent. Complete colonoscopy was undertaken of the cecum. There is a pedunculated polyp in the rectosigmoid, which was excised with hot snare polypectomy technique. The remaining colon was entirely normal. There was no evidence of stricture or diverticulosis. DESCRIPTION OF PROCEDURE: The patient was brought to the endoscopy suite and placed in lateral decubitus position, given intravenous sedation to the point of slurred speech and nystagmus. Digital rectal examination was normal. An Olympus video colonoscope was passed in the rectum and manipulated throughout the Electronically Signed By: HOSSEIN CARRASCO MD 01/22/25 0958 PATIENT NAME: EKATERINA BLANTON OPERATIVE REPORT DATE OF : 62 REPORT #: [id number] PHYSICIAN: HOSSEIN CARRASCO MD PCP: SYMONE JOSEPH MD REPORT IS CONFIDENTIAL AND NOT TO BE RELEASED WITHOUT AUTHORIZATION [facility] [address] [place], [place] [address] Signed colon ultimately intubating the cecum itself. The prep was surprisingly good. Ileocecal valve and appendiceal orifice were normal. Scope was withdrawn from that point. Examination showed no sign of abnormality until approximately the rectosigmoid where a 1 cm pedunculated polyp was noted. This was excised with hot snare technique. As incomplete resection was noted, re-application of snare and excision of the base of the polyp was additionally undertaken safely. The specimen was passed for pathology. The remaining rectum was normal. Retroflexed view showed internal hemorrhoid, which was not bleeding and without other problem. The scope was removed. The patient was taken to recovery room in good condition. CONCLUDING DIAGNOSES: 1. Rectosigmoid polyp excised. 2. Internal hemorrhoids. PLAN: Recommend repeat colonoscopy in 7 to 10 years, sooner if symptoms should develop. Recommend a high-fiber diet as well. He will return to the ongoing care of Symone Joseph MD. MD JOAN Bates/MONICA /[id number] cc: Dr. Symone Joseph [place], [place] Copies: ~ Electronically Signed By: HOSSEIN CARRASCO MD 01/22/25 0958 PATIENT NAME: NISSA DAVIDEKATERINA OPERATIVE REPORT DATE OF : 62 REPORT #: [id number] PHYSICIAN: HOSSEIN CARRASCO MD PCP: SYMONE JOSEPH MD REPORT IS CONFIDENTIAL AND NOT TO BE RELEASED WITHOUT AUTHORIZATION
--- NOTE | 2025-01-23 15:18 | PATH ---
[facility] [address] [facility] [place] [address] Signed SPECIMEN(S): A RECTOSIGMOID POLYP SPECIMEN SOURCE: A. RECTOSIGMOID POLYP CLINICAL HISTORY: Pre-: Surveillance colonoscopy, history of enterocutaneous fistula, post colon polyp (rectosigmoid), internal hemorrhoid FINAL PATHOLOGIC DIAGNOSIS: Rectosigmoid polyp: - Tubular adenoma (two fragments). JVR:[facility] MICROSCOPIC EXAMINATION: Histologic sections of all submitted blocks are examined by light microscopy. These findings, together with the gross examination, support the pathologic diagnosis. GROSS DESCRIPTION: The specimen, labeled and designated "Kael Cespedes, rectosigmoid polyp," is received in formalin and consists of two lopez soft tissue fragments, ranging from 0.6-0.7 cm. Entirely submitted in (A1). AB (under the direct supervision of a pathologist) The Gross Description was prepared using a voice recognition system. The report was reviewed for accuracy; however, sound-alike word errors, addition and/or deletions may occur. If there is any question about this report, please contact Client Services. PERFORMING LABORATORY: Technical component was performed by [employer], [address] [place] [id number] (CLIA# [id number]). Professional interpretation was performed by [facility], [address] [place] [id number] (CLIA#: [id number]). Diagnostician: Erick Canales MD Pathologist Electronically Signed 01/23/2025 Copies: PATIENT NAME: EKATERINA BLANTON PATHOLOGY DATE OF : 62 REPORT #: [id number] PHYSICIAN: [facility] PCP: SYMONE JOSEPH MD REPORT IS CONFIDENTIAL AND NOT TO BE RELEASED WITHOUT AUTHORIZATION [address] [address] Signed ~ PATIENT NAME: EKATERINA BLANTON PATHOLOGY DATE OF : 62 REPORT #: [id number] PHYSICIAN: [facility] PCP: SYMONE JOSEPH MD REPORT IS CONFIDENTIAL AND NOT TO BE RELEASED WITHOUT AUTHORIZATION
== END 2025-01-20 10:00 | disposition home or self-care (01) ==
LOC: DS 06:59
PROVIDERS: ATTEND Surgery
PROC: 0DBN8ZX Excision of Sigmoid Colon, Via Natural or Artificial Opening Endoscopic, Diagnostic (ICD-10-PCS; principal; 2025-01-20 08:30)
DX: Z12.11 Encounter for screening for malignant neoplasm of colon (principal); D12.7 Benign neoplasm of rectosigmoid junction; K64.8 Other hemorrhoids; Z87.19 Personal history of other diseases of the digestive system; Z90.49 Acquired absence of other specified parts of digestive tract; Z79.899 Other long term (current) drug therapy
CPT/HCPCS: 99153; G0500; J2250; J3010; J7121